=== PATIENT | male | born 1960 ===

== ENCOUNTER 2018-04-29 14:59 | Inpatient (IN) | payer MEDICAID ==
[2018-04-29] MEDS ORDERED: Iodixanol 320 MG/ML 100 ML BOTTLE IV ONE (16:21)
[2018-04-29 16:31] LABS: BASO # 0.1 K/uL (0.0-0.2); BASO % 0.9 % (0.0-2.0); EOS # 0.3 K/uL (0.0-0.7); EOS % 2.9 % (0.0-4.0); HEMOGLOBIN 14.1 g/dL (12.0-18.0); LYMPH # 1.3 K/uL (1.0-4.3); LYMPH % 14.1 % (20.0-40.0); MEAN CELL VOLUME 83.4 fL (80.0-94.0); MEAN CORPUSCULAR HEMOGLOBIN 27.6 pg (27.0-31.0); MEAN PLATELET VOLUME 6.8 fL (7.2-11.7); MONO # 0.9 K/uL (0.0-0.8); MONO % 9.4 % (0.0-10.0); NEUT # 6.8 K/uL (1.8-7.0); NEUT % 72.7 % (50.0-75.0); RBC 5.1 Mil/uL (4.40-5.90); RED CELL DISTRIBUTION WIDTH 14.5 % (11.5-14.5); WHITE BLOOD COUNT 9.3 K/uL (4.8-10.8)
--- NOTE | 2018-04-29 16:35 | C.PDOC ---
History Of Present Illness Patient presents to ED c/o SOB for approx 1 week, worse with exertion. He admits to occasional productive cough. Patient denies chest pain, fever, palpitations, abdominal pain, nausea/vomiting. Patient has PMHx of cigarette smoking, denies PMhx of asthma/COPD. Patient had outpatient CXR done, radiology report states he has large left sided pleural effusion, recommends CT chest. Time Seen by Provider: 04/29/18 16:00 Chief Complaint (Nursing): Shortness Of Breath History Per: Patient History/Exam Limitations: no limitations Onset/Duration Of Symptoms: Days (approx 1 week) Current Respiratory Medications: See Home Med List Severity: Moderate Past Medical History Reviewed: Historical Data, Nursing Documentation, Vital Signs Vital Signs: Last Vital Signs Temp 98.0 F 05/02/18 23:54 Pulse 88 05/02/18 23:54 Resp 20 05/02/18 23:54 BP 116/69 05/02/18 23:54 Pulse Ox 99 05/02/18 23:54 - Medical History PMH: No Chronic Diseases Family History: States: No Known Family Hx - Social History Hx Alcohol Use: Yes Hx Substance Use: No - Immunization History Hx Influenza Vaccination: No Hx Pneumococcal Vaccination: No Review Of Systems Constitutional: Negative for: Fever, Chills Cardiovascular: Negative for: Chest Pain, Palpitations Respiratory: Positive for: Cough, Shortness of Breath, SOB with Excertion. Negative for: Wheezing Gastrointestinal: Negative for: Nausea, Vomiting, Abdominal Pain Skin: Negative for: Rash Physical Exam - Physical Exam Appears: Well, Non-toxic, No Acute Distress, Other (speaking in full sentences) Skin: Normal Color, Warm, Dry Oral Mucosa: Moist Cardiovascular: Rhythm Regular (tachycardic ) Respiratory: Decreased Breath Sounds (left side - no breath sounds), No Accessory Muscle Use, No Rales, No Rhonchi, No Wheezing Gastrointestinal/Abdominal: Normal Exam, Bowel Sounds, Soft Extremity: Normal ROM, No Pedal Edema, No Calf Tenderness, Other (mild left axillary lymphadenopathy) Pulses: Left Dorsalis Pedis: Normal, Right Dorsalis Pedis: Normal Neurological/Psych: Oriented x3 ED Course And Treatment - Laboratory Results Result Diagrams: 05/02/18 08:53 05/02/18 08:53 ECG: Interpreted By Me, Viewed By Me (sinus tachycrdia 110 bpm, left axis deviation, no acute ST/T wave changes) ECG Interpretation: Abnormal O2 Sat by Pulse Oximetry: 95 (RA) Pulse Ox Interpretation: Normal - CT Scan/US CTA CHEST Other Rad Studies (CT/US): Read By Radiologist, Radiology Report Reviewed CT/US Interpretation: Accession No. : [id number]. Patient Name / ID : ANTHONY ALEJANDRO / [id number]. Exam Date : 04/29/2018 17:36:05 ( Approved ). Study Comment : Sex / Age : M / [id number]. Creator : roger toledo. Dictator : Dairy Equipment Installer : District Or District Office Director : Breezy Guerrero MD. Approver2 : Report Date : 04/2018 17:45:11. My Comment : . This report is currently processing and HAS NOT BEEN OFFICIALLY SIGNED BY THE PHYSICIAN - ESTIMATED TIME OF APPROVAL IS 04/29/2018 18:04. PROCEDURE: CT Chest with contrast (Pulmonary Angiogram). HISTORY: LEFT SIDED EFFUSION, R/O MASS, PE. COMPARISON: None available. TECHNIQUE: Axial computed tomography images were obtained of the chest in the pulmonary arterial phase of enhancement. Coronal and sagittal reformatted images were created and reviewed. Intravenous contrast dose: 100 cc Visipaque 320. Radiation dose: Total exam DLP = 330.39 mGy-cm. This CT exam was performed using one or more of the following dose reduction techniques: Automated exposure control, adjustment of the mA and/or kV according to patient size, and/or use of iterative reconstruction technique. FINDINGS: PULMONARY ARTERIES: The visualized pulmonary trunk, right main, right lobar segmental and proximal subsegmental branches of the pulmonary arteries are patent with no evidence of right-sided pulmonary embolus. The left main pulmonary artery as well as the lobar and proximal segmental branches appear patent so far as can be determined that given the significant compressive type atelectasis due to a very large left-sided effusion. Pulmonary trunk measures approximately 2.5 cm though this may be slightly compressed. AORTA: No acute findings. Ascending thoracic aorta measures approximately 3.75 cm and descending thoracic aorta measures approximately 2.4 cm. LUNGS: There is a massive left-sided effusion with compressive type atelectasis and mediastinal shift from left to right. In addition, there appears to be a compression of the left upper and lower lobe bronchi. . Significant centrilobular and panlobular emphysematous changes upper lobe predominance right lung. Mild atelectasis and or scarring change right middle lobe and to a lesser degree right lung base. . There is a small approximately 3.9 mm nodule right lateral upper lobe near the pleural surface. PLEURAL SPACES: As above. No evidence of pneumothorax the. HEART: Heart size normal. No significant pericardial effusion. LYMPH NODES: No lymphadenopathy. BONES, CHEST WALL: Minor multilevel degenerative spondylosis of the thoracic spine. OTHER FINDINGS: Unremarkable. IMPRESSION: Massive of left-sided effusion with compressive atelectasis of the left upper and lower lobes and mediastinal shift. No evidence of central pulmonary embolus so far as can be determined as detailed above. Significant emphysematous changes right lung upper lobe predominance. Small 3.9 mm nodule right lateral upper lobe near the pleural surface of the lateral convexity. Mild atelectasis and or scarring changes in the right lung base and lingular region Progress Note: Blood work, EKG, CTA chest ordered and reviewed. Patient given O2 by NC. 6:25pm Spoke with Dr. Sandoval (pulm consult), he will see patient tonight for pulm, for thoracentesis tonight or in AM. - Physician Consult Information Physician Contacted: Chinedu Joseph Outcome Of Conversation: Discussed patient with PMD, would like Dr. Elise for pulmonary. Dr. Elise spoken with, is away and being covered by Dr. Sandoval. Pending call back. Disposition - Disposition Disposition: HOSPITALIZED Disposition Time: 18:24 Condition: STABLE - Clinical Impression Clinical Impression: Pleural effusion, Dyspnea Decision To Admit - Pt Status Changed To: Hospital Disposition Of: Inpatient - Admit Certification Admit to Inpatient:: After my assessment, the patient will require hospitalization for at least two midnights. This is because of the severity of symptoms shown, intensity of services needed, and/or the medical risk in this patient being treated as an outpatient. - InPatient: Physician Admission Certification: I certify that this patient requires 2 or more midnights of care for the following reason:: see notes - . Bed Request Type: Telemetry Admitting Physician: Chinedu Joseph Patient Diagnosis: Pleural effusion, Dyspnea
[2018-04-29 16:41] LABS: INR 1.2; PROTHROMBIN TIME 12.6 SECONDS (9.7-12.2)
[2018-04-29 16:47] LABS: ALT/SGPT 35 U/L (21-72); AST/SGOT 33 U/L (17-59); BLOOD UREA NITROGEN 9 mg/dL (9-20); CALCIUM 9.1 mg/dl (8.6-10.4); GFR AFRICAN-AMERICAN > 60; GFR NON-AFRICAN AMERICAN > 60
[2018-04-29 16:59] LABS: CK-MB 0.99 ng/mL (0.0-3.38)
--- NOTE | 2018-04-29 18:00 | CT ---
PROCEDURE: CT Chest with contrast (Pulmonary Angiogram) HISTORY: LEFT SIDED EFFUSION, R/O MASS, PE COMPARISON: None available. TECHNIQUE: Axial computed tomography images were obtained of the chest in the pulmonary arterial phase of enhancement. Coronal and sagittal reformatted images were created and reviewed. Intravenous contrast dose: 100 cc Visipaque 320 Radiation dose: Total exam DLP = 330.39 mGy-cm. This CT exam was performed using one or more of the following dose reduction techniques: Automated exposure control, adjustment of the mA and/or kV according to patient size, and/or use of iterative reconstruction technique. FINDINGS: PULMONARY ARTERIES: The visualized pulmonary trunk, right main, right lobar segmental and proximal subsegmental branches of the pulmonary arteries are patent with no evidence of right-sided pulmonary embolus. The left main pulmonary artery as well as the lobar and proximal segmental branches appear patent so far as can be determined that given the significant compressive type atelectasis due to a very large left-sided effusion. Pulmonary trunk measures approximately 2.5 cm though this may be slightly compressed. AORTA: No acute findings. Ascending thoracic aorta measures approximately 3.75 cm and descending thoracic aorta measures approximately 2.4 cm. LUNGS: There is a massive left-sided effusion with compressive type atelectasis and mediastinal shift from left to right. In addition, there appears to be a compression of the left upper and lower lobe bronchi. . Significant centrilobular and panlobular emphysematous changes upper lobe predominance right lung. Mild atelectasis and or scarring change right middle lobe and to a lesser degree right lung base. . There is a small approximately 3.9 mm nodule right lateral upper lobe near the pleural surface. PLEURAL SPACES: As above. No evidence of pneumothorax the. HEART: Heart size normal. No significant pericardial effusion. LYMPH NODES: No lymphadenopathy. BONES, CHEST WALL: Minor multilevel degenerative spondylosis of the thoracic spine. OTHER FINDINGS: Unremarkable. IMPRESSION: Massive of left-sided effusion with compressive atelectasis of the left upper and lower lobes and mediastinal shift. No evidence of central pulmonary embolus so far as can be determined as detailed above. Significant emphysematous changes right lung upper lobe predominance Small 3.9 mm nodule right lateral upper lobe near the pleural surface of the lateral convexity. Mild atelectasis and or scarring changes in the right lung base and lingular region
--- NOTE | 2018-04-29 20:56 | CP.PCM.CON ---
History of Present Illness - History of Present Illness History of Present Illness: Pulmonary Evaluation, Covering Dr. Elise Chief Complaint: Shortness of Breath The Patient was seen and examined at the bedside, Medical records reviewed and management issues were discussed and formulated with the house staff. Events reviewed Mr Moscoso is 58 Years old heavy smoker Male with no significant Past Medical History Who Patient presents to ED c/o SOB for 1 week, worse with exertion, he was in his usual state of health till last Tuesday, started to have worsening SOB especially over last couple of days associated with occasional productive cough. Patient denies chest pain, fever, palpitations, abdominal pain, nausea/ vomiting. Weight fluctuate but Pt also admits 6LB weigh loss recently Patient was seen by his PMD, found to be tachycardia and tachypnea, underwent EKG and had outpatient CXR done, radiology report states he has large left sided pleural effusion, recommends CT chest. He presented to the Emergency department this evening, underwent Chest CTA that was negative for central Pulmonary embolis. Pt saturating 93-95% on 3L nasal cannula PSH: Long standing smoking history for about 40 years, about 1PPD, recently cut down to 1/2 PPD Family History: States: No Known Family Hx Past Patient History - Past Social History Smoking Status: Light Smoker < 10 Cigarettes Daily - HEMATOLOGICAL/ONCOLOGICAL Hx Blood Disorders: Yes Hx Hepatitis A: Yes - PSYCHIATRIC Hx Substance Use: No Meds Allergies/Adverse Reactions: Allergies Allergy/AdvReac Type Severity Reaction Status Date / Time No Known Allergies Allergy Verified 04/29/18 15:17 Physical Exam - Constitutional Appears: Well, No Acute Distress (mild distress, Tachypnea when he walked to the bathroom) - Head Exam Head Exam: ATRAUMATIC, NORMAL INSPECTION, NORMOCEPHALIC - Eye Exam Eye Exam: EOMI, Normal appearance. absent: Conjunctival injection Pupil Exam: NORMAL ACCOMODATION, PERRL - ENT Exam ENT Exam: Mucous Membranes Moist, Normal Exam - Neck Exam Neck exam: Positive for: Full Rom, Normal Inspection. Negative for: Lymphadenopathy, Meningismus, Tenderness, Thyromegaly - Respiratory Exam Respiratory Exam: Decreased Breath Sounds, Prolonged Expiratory Phase, Rhonchi, Respiratory Distress (mild distress, Tachypnea when he walked to the bathroom). absent: Accessory Muscle Use, Chest Wall Tenderness, Clear to Auscultation Bilateral, Rales, Wheezes - Cardiovascular Exam Cardiovascular Exam: Tachycardia, REGULAR RHYTHM, RRR, +S1, +S2. absent: Bradycardia, Clicks, Diastolic murmur, Gallop, Irregular Rhythm, JVD - GI/Abdominal Exam GI & Abdominal Exam: Normal Bowel Sounds. absent: Distended, Firm, Guarding - Extremities Exam Extremities exam: Positive for: full ROM, normal capillary refill, normal inspection, pedal pulses present. Negative for: calf tenderness, joint swelling , pedal edema, tenderness - Back Exam Back exam: absent: CVA tenderness (L), CVA tenderness (R) - Neurological Exam Neurological exam: Alert, CN II-XII Intact, Motor Sensory Deficit, Normal Gait, Oriented x3, Reflexes Normal Results - Vital Signs Recent Vital Signs: Last Vital Signs Temp 98 F 04/29/18 15:10 Pulse 99 H 04/29/18 20:20 Resp 22 04/29/18 20:20 BP 161/110 H 04/29/18 20:20 Pulse Ox 95 04/29/18 20:20 - Labs Result Diagrams: 04/29/18 16:28 04/29/18 16:28 Labs: Laboratory Results - last 24 hr 04/29/18 04/29/18 04/29/18 16:28 16:28 16:28 WBC 9.3 RBC 5.10 Hgb 14.1 Hct 42.5 MCV 83.4 MCH 27.6 MCHC 33.0 RDW 14.5 Plt Count 446 H MPV 6.8 L Neut % (Auto) 72.7 Lymph % (Auto) 14.1 L Wilkes % (Auto) 9.4 Eos % (Auto) 2.9 Baso % (Auto) 0.9 Neut # (Auto) 6.8 Lymph # (Auto) 1.3 Wilkes # (Auto) 0.9 H Eos # (Auto) 0.3 Baso # (Auto) 0.1 PT 12.6 H INR 1.2 APTT 44 H Sodium 140 Potassium 4.0 Chloride 101 Carbon Dioxide 26 Anion Gap 17 BUN 9 Creatinine 1.1 Est GFR ( Amer) > 60 Est GFR (Non-Af Amer) > 60 POC Glucose (mg/dL) Random Glucose 186 H Calcium 9.1 Total Bilirubin 0.5 AST 33 ALT 35 Alkaline Phosphatase 124 Total Creatine Kinase 78 CK-MB (Mass) 0.99 Troponin I < 0.0120 Total Protein 7.8 Albumin 4.0 Globulin 3.8 Albumin/Globulin Ratio 1.0 04/29/18 16:47 WBC RBC Hgb Hct MCV MCH MCHC RDW Plt Count MPV Neut % (Auto) Lymph % (Auto) Wilkes % (Auto) Eos % (Auto) Baso % (Auto) Neut # (Auto) Lymph # (Auto) Wilkes # (Auto) Eos # (Auto) Baso # (Auto) PT INR APTT Sodium Potassium Chloride Carbon Dioxide Anion Gap BUN Creatinine Est GFR ( Amer) Est GFR (Non-Af Amer) POC Glucose (mg/dL) 184 H Random Glucose Calcium Total Bilirubin AST ALT Alkaline Phosphatase Total Creatine Kinase CK-MB (Mass) Troponin I Total Protein Albumin Globulin Albumin/Globulin Ratio Assessment & Plan (1) Pleural effusion on left Status: Acute (2) Emphysema of lung Status: Acute (3) Tobacco abuse Status: Acute - Assessment and Plan (Free Text) Assessment: Acute respiratory distress due to large left sided pleural effusion and COPD Weight fluctuate but Pt also admits 6LB weigh loss recently Long standing smoking history for about 40 years, about 1PPD, recently cut down to 1/2 PPD EKG and had outpatient CXR done, showing large left sided pleural effusion He presented to the Emergency department this evening, underwent Chest CTA that was negative for central Pulmonary embolism. Patient likelyhave diagnosis of COPD, that should eventually be confirmed by PFT 's when patient is more stable on an outpatient basis. No clinical evidence of pneumonia or PE (no Antibiotics at this time) Started ALBUTEROL/Atrovent Inhaler q4h PRN (inhaler technique Education performed) Nisotine patch Will arrange for performing diagnostic/therapeutic thoracentesis ECHO to evaluate LV function and R/O Pulmonary hypertension ABG reviewed 7.49/34/55/27/93% Patient plaed on BIPAP 12//40% RR16
[2018-04-29 23:36] LABS: ABG ALLEN TEST POS; ARTERIAL BLOOD GAS O2 SAT 93.1 % (95-98); ARTERIAL BLOOD GAS PCO2 34 mm/Hg (35-45); ARTERIAL BLOOD GAS PH 7.49 (7.35-7.45); ARTERIAL BLOOD GAS PO2 55 mm/Hg (80-100); ARTERIAL BLOOD GAS TCO2 26.9 mmol/L (22-28)
[2018-04-30] MEDS: Albuterol-Ipratrop 3 mg / 0.5 (3 ml) UD INH SCH ×7 (00:25→23:51)
--- NOTE | 2018-04-30 12:23 | CP.PCM.PN ---
Subjective - Date & Time of Evaluation Date of Evaluation: 04/30/18 Time of Evaluation: 11:00 - Subjective Subjective: The patient seen and examined Dyspnea while sitting and on minimal exertion CAT scan of the chest noted Large pleural effusion with mediastinal shift After obtaining consent thoracentesis procedure done in the intercostal space posterior axillary line Aseptic conditions/local anesthesia, 2.2 L of blood-tinged fluid removed Patient tolerated the procedure well Fluid analysis Followup chest x-ray Malignancy rosangela Objective - Vital Signs/Intake and Output Vital Signs (last 24 hours): Temp Pulse Resp BP Pulse Ox 98.0 F 88 20 143/95 H 95 04/30/18 08:47 04/30/18 08:47 04/30/18 08:47 04/30/18 08:47 04/30/18 08:47 - Medications Medications: Current Medications Albuterol/Ipratropium (Duoneb 3 Mg/0.5 Mg (3 Ml) Ud) 3 ml INH RQ4 [facility] Last Admin: 04/30/18 11:11 Dose: 3 ml Heparin Sodium (Porcine) (Heparin) 5,000 units SC Q8 [facility] Last Admin: 04/30/18 06:53 Dose: 5,000 units Nicotine (Nicoderm Cq) 1 patch TD DAILY [facility] Last Admin: 04/30/18 09:18 Dose: 1 patch Pneumococcal Polyvalent Vaccine (Pneumovax 23 Vaccine) 0.5 ml IM .ONCE ONE Stop: 05/02/18 14:01 - Labs Labs: 04/29/18 16:28 04/29/18 16:28 PT 12.6 SECONDS (9.7-12.2) H 04/29/18 16:28 INR 1.2 04/29/18 16:28 APTT 44 SECONDS (21-34) H 04/29/18 16:28
--- NOTE | 2018-04-30 13:05 | RAD ---
HISTORY: post thoracentesis COMPARISON: Comparison made with CTA chest dated 04/29/2018 FINDINGS: LUNGS: Status post left-sided thoracentesis with decreased size left-sided effusion. There is persistent opacification of the left mid-lower lung zone. No obvious pneumothorax. PLEURA: As above. CARDIOVASCULAR: Slight improvement previously noted [id number] mediastinal shift OSSEOUS STRUCTURES: No significant abnormalities. VISUALIZED UPPER ABDOMEN: Normal. OTHER FINDINGS: None. IMPRESSION: Status post left-sided thoracentesis with decreased size left-sided effusion. There is persistent opacification of the left mid-lower lung zone. No obvious pneumothorax. Slight improvement previously noted [id number] mediastinal shift
[2018-05-01] MEDS: Albuterol-Ipratrop 3 mg / 0.5 (3 ml) UD INH SCH ×5 (03:17→20:26)
--- NOTE | 2018-05-01 09:00 | CP.PCM.HP ---
History of Present Illness - History of Present Illness History of Present Illness: CC: short of breath 58 y/o with no past medical problem. Patient seen in 04/24 for shortness of breath and dry cough. He had CXR and EKG. CXR showed effusion and advise to go to ER. In ER was admitted. Present on Admission - Present on Admission Any Indicators Present on Admission: Yes History of DVT/PE: No History of Uncontrolled Diabetes: No Urinary Catheter: No Decubitus Ulcer Present: No Review of Systems - Review of Systems Systems not reviewed;Unavailable: Acuity of Condition, Respiratory Distress - Constitutional Constitutional: Lethargy, Malaise. absent: Headache, Increased Appetite, Sleep Apnea - EENT Eyes: absent: Loss of Peripheral Vision, Requires Corrective Lenses, Sees Flashes, Spots in Vision Ears: absent: Ear Discharge, Ear Pain, Tinnitus, Disequilibrium, Dizziness Nose/Mouth/Throat: absent: Nasal Congestion, Bleeding Gums, Dysphagia, Facial Pain - Cardiovascular Cardiovascular: Dyspnea. absent: Chest Pain, Diaphoresis, Dyspnea on Exertion, Edema, Leg Edema, Leg Ulcers, Palpitations - Respiratory Respiratory: Cough. absent: Pain on Inspiration, Chest Congestion, Excessive Mucous Production - Gastrointestinal Gastrointestinal: absent: Abdominal Pain, Fecal Incontinence, Loose Stools, Vomiting - Genitourinary Genitourinary: absent: Difficulty Urinating, Dysuria, Pyuria - Musculoskeletal Musculoskeletal: absent: Back Pain, Loss of Height, Muscle Weakness, Numbness - Integumentary Integumentary: absent: Alopecia, Hirsutism, Rash - Neurological Neurological: absent: Dizziness, Numbness, Focal Weakness, Loss of Vision - Hematologic/Lymphatic Hematologic: absent: Easy Bleeding, Easy Bruising, Lymphadenopathy Past Patient History - Infectious Disease Hx of Infectious Diseases: None - Past Social History Smoking Status: Heavy Smoker > 10 Cigarettes Daily - HEMATOLOGICAL/ONCOLOGICAL Hx Blood Disorders: Yes Hx Hepatitis A: Yes - MUSCULOSKELETAL/RHEUMATOLOGICAL Hx Falls: No - PSYCHIATRIC Hx Substance Use: No Meds Allergies/Adverse Reactions: Allergies Allergy/AdvReac Type Severity Reaction Status Date / Time No Known Allergies Allergy Verified 04/29/18 15:17 Physical Exam - Constitutional Appears: No Acute Distress - Eye Exam Eye Exam: Normal appearance - ENT Exam ENT Exam: Mucous Membranes Moist - Neck Exam Neck exam: Positive for: Full Rom. Negative for: Tenderness, Thyromegaly - Respiratory Exam Respiratory Exam: Decreased Breath Sounds. absent: Rales, Rhonchi, Wheezes - Cardiovascular Exam Cardiovascular Exam: REGULAR RHYTHM, +S1, +S2. absent: Gallop, JVD, Systolic Murmur - GI/Abdominal Exam GI & Abdominal Exam: absent: Mass, Rebound, Tenderness - Extremities Exam Extremities exam: Positive for: calf tenderness, full ROM, normal capillary refill. Negative for: joint swelling Results - Vital Signs Recent Vital Signs: Last Vital Signs Temp 99.0 F 05/01/18 07:54 Pulse 90 05/01/18 07:54 Resp 20 05/01/18 07:54 BP 162/91 H 05/01/18 07:54 Pulse Ox 97 05/01/18 07:54 - Labs Result Diagrams: 04/29/18 16:28 04/29/18 16:28 Assessment & Plan - Assessment and Plan (Free Text) Assessment: Massive left pleural effusion w/ shift s/p Thoracentesis COPD, HTN ?? For on going work up Doneb started; addd Shalom Discuss w/ - likely malignancy
[2018-05-01] MEDS: diltiaZEM 240 mg/24 Hours CD Cap PO SCH (09:54)
--- NOTE | 2018-05-01 17:13 | CP.PCM.PN ---
Subjective - Date & Time of Evaluation Date of Evaluation: 05/01/18 Time of Evaluation: 10:35 - Subjective Subjective: : Shortness of breath HPI: Patient examined this morning at the bedside. Patient is not in acute distress. Patient reports improved breathing after thoracentesis. Patient is afebrile. Patient is more responsive. Pending thoracentesis fluid results. Repeat chest x-ray showed s/p left sided thoracentesis with decreased size left - sided effusion. Slight improvement from previously noted left- to- right mediastinal shift. ROS: Constitutional: Patient denies fever and chills. Cardiovascular: Patient denies chest pain, palpitations. Respiratory: Patient denies shortness of breath or cough. Gastrointestinal: Patient denies nausea, vomiting, diarrhea. Physical Exam HEENT: Atraumatic, normocephalic, mucuous membranes moist Repiratory: Clear to auscultation bilaterally. No wheezing or rhonchi. No use of accessory muscles. Cardiovascular: +S1/ S2, regular rate and rhythm GI: Normal bowel sounds in all 4 quadrants, no tenderness, no distention Extremities: No LE edema Neurological: Alert, awake, oriented X3 Assessment: 58 year old male patient with no past medical history; patient's CXR consistent with pleural effusion. 1. Pleural effusion - Pleural fluid analysis - Malignancy workup Objective - Vital Signs/Intake and Output Vital Signs (last 24 hours): Temp Pulse Resp BP Pulse Ox 98.2 F 90 20 147/89 96 05/01/18 15:30 05/01/18 16:28 05/01/18 15:30 05/01/18 15:30 05/01/18 15:30 - Medications Medications: Current Medications Albuterol/Ipratropium (Duoneb 3 Mg/0.5 Mg (3 Ml) Ud) 3 ml INH RQ4 [facility] Last Admin: 05/01/18 16:55 Dose: 3 ml Diltiazem HCl (Cardizem Cd) 240 mg PO DAILY [facility] Last Admin: 05/01/18 09:54 Dose: 240 mg Heparin Sodium (Porcine) (Heparin) 5,000 units SC Q8 [facility] Last Admin: 05/01/18 13:55 Dose: 5,000 units Nicotine (Nicoderm Cq) 1 patch TD DAILY [facility] Last Admin: 05/01/18 09:54 Dose: 1 patch Pneumococcal Polyvalent Vaccine (Pneumovax 23 Vaccine) 0.5 ml IM .ONCE ONE Stop: 05/02/18 14:01 Fluticasone/Salmeterol (Advair Diskus 250/50) 1 puff INH RQ12 [facility] - Labs Labs: 04/29/18 16:28 04/29/18 16:28 PT 12.6 SECONDS (9.7-12.2) H 04/29/18 16:28 INR 1.2 04/29/18 16:28 APTT 44 SECONDS (21-34) H 04/29/18 16:28
[2018-05-01] MEDS: Fluticasone-Salmeterol 250-50mcg Diskus INH SCH (20:29)
--- NOTE | 2018-05-01 21:18 | CARD ---
APPROVED REPORT EXAM: Two-dimensional and M-mode echocardiogram with Doppler and color Doppler. INDICATION Dyspnea LV Function:Systolic Pulmonary Hypertention 2D DIMENSIONS IVSd1.5 (0.7-1.1cm)Aortic Root (2D)3.8 (2.0-3.7cm) LVDd4.5 (3.9-5.9cm)PWd1.3 (0.7-1.1cm) LVDs3.3 (2.5-4.0cm)FS (%) 26.5 % LVEF (%)65.0 (>50%) M-Mode DIMENSIONS Left Atrium (MM)2.76 (2.5-4.0cm)IVSd1.42 (0.7-1.1cm) Aortic Root3.81 (2.2-3.7cm)LVDd4.79 (4.0-5.6cm) Aortic Cusp Exc.2.24 (1.5-2.0cm)PWd1.39 (0.7-1.1cm) FS (%) 41 %LVDs2.81 (2.0-3.8cm) LVEF (%)72 (>50%) Mitral Valve MV E Anedjadz53.1cm/sMV A Cuyhremp18.8cm/sE/A ratio0.8 TDI E/Lateral E'0.0E/Medial E'0.0 LEFT VENTRICLE The left ventricle is normal size. There is mild concentric left ventricular hypertrophy. The left ventricular function is normal. The left ventricular ejection fraction is within the normal range. about 70% No regional wall motion abnormalities noted. Transmitral Doppler flow pattern is Grade I-abnormal relaxation pattern. No left ventricle thrombus noted on this study. There is no ventricular septal defect visualized. There is no left ventricular aneurysm. There is no mass noted in the left ventricle. RIGHT VENTRICLE The right ventricle is normal size. There is normal right ventricular wall thickness. The right ventricular systolic function is normal. ATRIA The left atrium size is normal. The right atrium size is normal. The interatrial septum is intact with no evidence for an atrial septal defect. AORTIC VALVE The aortic valve is normal in structure and function. No aortic regurgitation is present. There is no aortic valvular stenosis. There is no aortic valvular vegetation. MITRAL VALVE The mitral valve is normal in structure and function. There is no evidence of mitral valve prolapse. There is no mitral valve stenosis. There is no mitral valve regurgitation noted. TRICUSPID VALVE The tricuspid valve is normal in structure and function. There is no tricuspid valve regurgitation noted. There is no tricuspid valve prolapse or vegetation. There is no tricuspid valve stenosis. PULMONIC VALVE The pulmonary valve is normal in structure and function. There is no pulmonic valvular regurgitation. There is no pulmonic valvular stenosis. GREAT VESSELS The aortic root is normal in size. The ascending aorta is normal in size. The pulmonary artery is normal. The IVC is normal in size and collapses >50% with inspiration. PERICARDIAL EFFUSION The pericardium appears normal. Large pleural effusions are noted with fibrinous material therein. <Conclusion> Nomral left ventricular systolic function and doppler Large pleural effusions are noted with fibrinous material therein.
[2018-05-02] MEDS: Albuterol-Ipratrop 3 mg / 0.5 (3 ml) UD INH SCH ×6 (00:44→20:18)
[2018-05-02] MEDS: Fluticasone-Salmeterol 250-50mcg Diskus INH SCH ×2 (08:04→20:18)
--- NOTE | 2018-05-02 08:12 | CP.PCM.PN ---
Subjective - Date & Time of Evaluation Date of Evaluation: 05/02/18 Time of Evaluation: 07:55 - Subjective Subjective: Pt feels well; no more SOB, min dry cough, no CP, N/V, no diarrhea. No fever, no urinary complain Objective - Vital Signs/Intake and Output Vital Signs (last 24 hours): Temp Pulse Resp BP Pulse Ox 97.5 F L 92 H 20 133/79 95 05/02/18 00:00 05/02/18 07:30 05/02/18 00:00 05/02/18 00:00 05/02/18 00:00 - Medications Medications: Current Medications Albuterol/Ipratropium (Duoneb 3 Mg/0.5 Mg (3 Ml) Ud) 3 ml INH RQ4 [facility] Last Admin: 05/02/18 08:04 Dose: 3 ml Diltiazem HCl (Cardizem Cd) 240 mg PO DAILY [facility] Last Admin: 05/01/18 09:54 Dose: 240 mg Heparin Sodium (Porcine) (Heparin) 5,000 units SC Q8 [facility] Last Admin: 05/02/18 05:43 Dose: 5,000 units Nicotine (Nicoderm Cq) 1 patch TD DAILY [facility] Last Admin: 05/01/18 09:54 Dose: 1 patch Pneumococcal Polyvalent Vaccine (Pneumovax 23 Vaccine) 0.5 ml IM .ONCE ONE Stop: 05/02/18 14:01 Fluticasone/Salmeterol (Advair Diskus 250/50) 1 puff INH RQ12 [facility] Last Admin: 05/02/18 08:04 Dose: 1 puff - Labs Labs: 04/29/18 16:28 04/29/18 16:28 PT 12.6 SECONDS (9.7-12.2) H 04/29/18 16:28 INR 1.2 04/29/18 16:28 APTT 44 SECONDS (21-34) H 04/29/18 16:28 - Constitutional Appears: No Acute Distress - Eye Exam Eye Exam: Normal appearance - ENT Exam ENT Exam: Mucous Membranes Moist - Neck Exam Neck Exam: Full ROM. absent: Lymphadenopathy, Normal Inspection - Respiratory Exam Respiratory Exam: Decreased Breath Sounds. absent: Rales, Rhonchi, Wheezes - Cardiovascular Exam Cardiovascular Exam: REGULAR RHYTHM, +S1. absent: Gallop - GI/Abdominal Exam GI & Abdominal Exam: Soft. absent: Tenderness - Extremities Exam Extremities Exam: Full ROM. absent: Calf Tenderness, Joint Swelling Assessment and Plan - Assessment and Plan (Free Text) Assessment: HTN; COPD; Massive pleural effusion likely malignant Cont meds/ supportive care Pt and made aware c/o on going work up but likely cancer
[2018-05-02 09:06] LABS: BASO # 0.1 K/uL (0.0-0.2); BASO % 0.7 % (0.0-2.0); EOS # 0.4 K/uL (0.0-0.7); EOS % 4.8 % (0.0-4.0); HEMOGLOBIN 14.1 g/dL (12.0-18.0); LYMPH # 1.3 K/uL (1.0-4.3); LYMPH % 15.6 % (20.0-40.0); MEAN CELL VOLUME 83.5 fL (80.0-94.0); MEAN CORPUSCULAR HEMOGLOBIN 28.1 pg (27.0-31.0); MEAN CORPUSCULAR HGB CONC 33.7 g/dL (33.0-37.0); MEAN PLATELET VOLUME 6.9 fL (7.2-11.7); MONO # 0.7 K/uL (0.0-0.8); MONO % 8.6 % (0.0-10.0); NEUT # 6.1 K/uL (1.8-7.0); NEUT % 70.3 % (50.0-75.0); RBC 5.01 Mil/uL (4.40-5.90); RED CELL DISTRIBUTION WIDTH 13.9 % (11.5-14.5); WHITE BLOOD COUNT 8.6 K/uL (4.8-10.8)
[2018-05-02 09:29] LABS: ALB/GLOB RATIO 1.1 (1.0-2.1); ALBUMIN 3.8 g/dL (3.5-5.0); ALT/SGPT 30 U/L (21-72); AST/SGOT 23 U/L (17-59); BLOOD UREA NITROGEN 10 mg/dL (9-20); CALCIUM 8.9 mg/dl (8.6-10.4); GFR AFRICAN-AMERICAN > 60; GFR NON-AFRICAN AMERICAN > 60
[2018-05-02] MEDS: diltiaZEM 240 mg/24 Hours CD Cap PO SCH (09:47)
[2018-05-02] MEDS ORDERED: Pneumococcal 23-Valent Vaccine IM ONE (14:00)
--- NOTE | 2018-05-02 16:32 | CP.PCM.PN ---
Subjective - Date & Time of Evaluation Date of Evaluation: 05/02/18 Time of Evaluation: 11:00 - Subjective Subjective: Shortness of breath HPI: Patient seen and examined this morning at the bedside. Patient is not in acute distress. Patient denies any shortness of breath. Patient is afebrile. Pathology results of pleural fluid was negative for malignant cells. Patient will have chest tube placed for drainage. ROS: Constitutional: Patient denies fever and chills. Cardiovascular: Patient denies chest pain, palpitations. Respiratory: Patient denies shortness of breath or cough. Gastrointestinal: Patient denies nausea, vomiting, diarrhea. Physical Exam HEENT: Atraumatic, normocephalic, mucuous membranes moist Repiratory: Clear to auscultation bilaterally. No wheezing or rhonchi. No use of accessory muscles. Cardiovascular: +S1/ S2, regular rate and rhythm GI: Normal bowel sounds in all 4 quadrants, no tenderness, no distention Extremities: No LE edema Neurological: Alert, awake, oriented X3 Assessment: 58 year old male patient with no past medical history; patient's CXR consistent with pleural effusion. 1. Pleural effusion - Pathology results negative for malignant cells - Chest tube placement for drainage Objective - Vital Signs/Intake and Output Vital Signs (last 24 hours): Temp Pulse Resp BP Pulse Ox 97.6 F 98 H 20 148/91 H 95 05/02/18 15:06 05/02/18 15:06 05/02/18 15:06 05/02/18 15:06 05/02/18 15:06 - Medications Medications: Current Medications Albuterol/Ipratropium (Duoneb 3 Mg/0.5 Mg (3 Ml) Ud) 3 ml INH RQ4 [facility] Last Admin: 05/02/18 16:25 Dose: 3 ml Diltiazem HCl (Cardizem Cd) 240 mg PO DAILY [facility] Last Admin: 05/02/18 09:47 Dose: 240 mg Heparin Sodium (Porcine) (Heparin) 5,000 units SC Q8 [facility] Last Admin: 05/02/18 13:39 Dose: 5,000 units Nicotine (Nicoderm Cq) 1 patch TD DAILY [facility] Last Admin: 05/02/18 09:48 Dose: 1 patch Fluticasone/Salmeterol (Advair Diskus 250/50) 1 puff INH RQ12 [facility] Last Admin: 05/02/18 08:04 Dose: 1 puff - Labs Labs: 05/02/18 08:53 05/02/18 08:53 PT 12.6 SECONDS (9.7-12.2) H 04/29/18 16:28 INR 1.2 04/29/18 16:28 APTT 44 SECONDS (21-34) H 04/29/18 16:28
[2018-05-02] MEDS ORDERED: Lidocaine 1% Inj (20ml) INJ ONE (17:45)
--- NOTE | 2018-05-02 18:43 | PCM.PROC ---
Procedures Attestation:: I certify that I have explained the specified Operation(s) or Procedure(s), risks, benefits and reasonable alternatives to the Patient and/or other person responsible. The opportunity was given to ask questions and all questions answered - Chest Tube Chest Tube Location: Posterior Chest Left, Lateral Chest Left Chest Tube Procedure: Povidone-Iodine 1% Tube Sutured to Skin: No Sterile Dressing Applied: Yes Anesthesia: Lidocaine 1% Volume Anesthetic (mls): 6 Incision Made With: #10 blade Post Procedure: sterile dressing applied [place]: No Tube Drainage: fluid Amount of Initial Drainage: 1,000 Post Procedure CXR?: Yes Patient Tolerated Procedure: Yes
--- NOTE | 2018-05-02 18:55 | RAD ---
Date of service: 05/02/2018 PROCEDURE: CHEST RADIOGRAPH, 1 VIEW HISTORY: s/p chest tube insertion COMPARISON: Chest radiograph dated 04/30/2018. FINDINGS: LUNGS: Left basilar atelectasis. PLEURA: Reduction in still moderate to large left pleural effusion post pigtail chest tube insertion. CARDIOVASCULAR: Cardiomediastinal silhouette be adequately evaluated secondary to adjacent obscuring lung pathology. OSSEOUS STRUCTURES: Unchanged. VISUALIZED UPPER ABDOMEN: Normal. OTHER FINDINGS: New left basilar pigtail chest tube. IMPRESSION: New left basilar pigtail chest tube with reduction in still moderate to large left pleural effusion.
[2018-05-02] MEDS ORDERED: Oxycodone/Acetaminophen 5/325 mg Tab PO PRN (22:12)
[2018-05-03] MEDS: Albuterol-Ipratrop 3 mg / 0.5 (3 ml) UD INH SCH ×6 (00:19→20:01)
[2018-05-03] MEDS: Fluticasone-Salmeterol 250-50mcg Diskus INH SCH ×2 (07:35→20:02)
--- NOTE | 2018-05-03 08:22 | CP.PCM.PN ---
Subjective - Date & Time of Evaluation Date of Evaluation: 05/03/18 Time of Evaluation: 07:50 - Subjective Subjective: Pt no complain; no CP, no irritability despite off tobacco use; A little craving after eating. No CP, no SOB, no edema, (+) dry cough Objective - Vital Signs/Intake and Output Vital Signs (last 24 hours): Temp Pulse Resp BP Pulse Ox 97.6 F 75 20 138/78 95 05/03/18 07:00 05/03/18 07:00 05/03/18 07:00 05/03/18 07:00 05/03/18 07:30 Intake and Output: 05/03/18 05/03/18 06:59 18:59 Output Total 210 Balance -210 - Medications Medications: Current Medications Albuterol/Ipratropium (Duoneb 3 Mg/0.5 Mg (3 Ml) Ud) 3 ml INH RQ4 [facility] Last Admin: 05/03/18 07:35 Dose: 3 ml Diltiazem HCl (Cardizem Cd) 240 mg PO DAILY [facility] Last Admin: 05/02/18 09:47 Dose: 240 mg Nicotine (Nicoderm Cq) 1 patch TD DAILY [facility] Last Admin: 05/02/18 09:48 Dose: 1 patch Oxycodone/Acetaminophen (Percocet 5/325 Mg Tab) 1 tab PO Q6H PRN PRN Reason: Pain, moderate (4-7) Stop: 05/05/18 22:13 Last Admin: 05/03/18 06:03 Dose: 1 tab Fluticasone/Salmeterol (Advair Diskus 250/50) 1 puff INH RQ12 [facility] Last Admin: 05/03/18 07:35 Dose: 1 puff - Labs Labs: 05/02/18 08:53 05/02/18 08:53 PT 12.6 SECONDS (9.7-12.2) H 04/29/18 16:28 INR 1.2 04/29/18 16:28 APTT 44 SECONDS (21-34) H 04/29/18 16:28 - Constitutional Appears: No Acute Distress - Eye Exam Eye Exam: Normal appearance. absent: Periorbital tenderness - ENT Exam ENT Exam: Mucous Membranes Moist - Neck Exam Neck Exam: Full ROM. absent: Lymphadenopathy, Thyromegaly - Respiratory Exam Respiratory Exam: absent: Decreased Breath Sounds, Rales, Rhonchi, Wheezes - Cardiovascular Exam Cardiovascular Exam: Gallop, REGULAR RHYTHM, +S1, +S2. absent: JVD - GI/Abdominal Exam GI & Abdominal Exam: Soft. absent: Tenderness - Extremities Exam Extremities Exam: Calf Tenderness, Full ROM. absent: Joint Swelling Assessment and Plan - Assessment and Plan (Free Text) Assessment: Malignant effusion s/p chest tube insertion COPD For chest CT cont supportive care
[2018-05-03] MEDS ORDERED: Iodixanol 320 MG/ML 100 ML BOTTLE IV ONE (09:17)
[2018-05-03] MEDS: diltiaZEM 240 mg/24 Hours CD Cap PO SCH (10:19)
--- NOTE | 2018-05-03 12:01 | CT ---
Date of service: 05/03/2018 PROCEDURE: CT Chest with contrast HISTORY: abn CXR COMPARISON: CT angiography of the pulmonary arteries performed 04/29/2018. TECHNIQUE: Contiguous axial images were obtained through the chest with intravenous contrast enhancement. Sagittal and coronal reconstructions were performed. IV contrast: 100 mL Visipaque 320 Radiation dose (DLP): 353.3 mGy-cm. This CT exam was performed using one or more of the following dose reduction techniques: Automated exposure control, adjustment of the mA and/or kV according to patient size, and/or use of iterative reconstruction technique. FINDINGS: LUNGS: Near complete re-expansion of left lung with minimal lingular and left lower lobe subsegmental atelectasis. Trace dependent right lower lobe atelectasis. Visualized airway clear. MEDIASTINUM: Unremarkable thoracic aorta. No aneurysm or dissection. Normal sized heart. Main pulmonary artery unremarkable. No vascular congestion. No lymphadenopathy. PLEURA: Marked reduction of massive left pleural effusion post pigtail chest tube insertion with small residual pleural effusion, possibly with small loculated component anteroinferiorly. Small amount of hyperdensity seen along the left posterior lateral pleura redemonstrated which may be related to blood products and/or soft tissue. No pneumothorax. BONES: No fracture. No destructive lesion. UPPER ABDOMEN: Partially imaged heterogeneously enhancing right upper pole mass. OTHER FINDINGS: None. IMPRESSION: Partially imaged heterogeneously enhancing right upper pole renal mass. Marked reduction of massive left pleural effusion post pigtail chest tube insertion with small residual pleural effusion, possibly with small anteroinferior loculated component. Small amount of hyperdensity layering along the left posterior lateral pleura redemonstrated which may be related to blood products and/or soft tissue.
--- NOTE | 2018-05-03 17:23 | CP.PCM.PN ---
Subjective - Date & Time of Evaluation Date of Evaluation: 05/03/18 Time of Evaluation: 10:00 - Subjective Subjective: Patient seen and examined this morning at the bedside. Patient is not in acute distress. Patient denies any shortness of breath. Patient is afebrile. Patient has pig tail chest tube for drainage. Patient had CT scan which showed marked reduction of massive left pleural effusion post pigtail tube insertion. Partially imaged heterogeneously enhancing right upper pole renal mass. ROS: Constitutional: Patient denies fever and chills. Cardiovascular: Patient denies chest pain, palpitations. Respiratory: Patient denies shortness of breath or cough. Gastrointestinal: Patient denies nausea, vomiting, diarrhea. Physical Exam HEENT: Atraumatic, normocephalic, mucuous membranes moist Repiratory: Clear to auscultation bilaterally. No wheezing or rhonchi. No use of accessory muscles. Cardiovascular: +S1/ S2, regular rate and rhythm GI: Normal bowel sounds in all 4 quadrants, no tenderness, no distention Extremities: No LE edema Neurological: Alert, awake, oriented X3 Assessment: 58 year old male patient with no past medical history; patient's CXR consistent with pleural effusion. 1. Pleural effusion - Patient has pig tail chest tube for drainage of pleural effusion. - Tube will be removed tomorrow before discharge. - Patient to get biopsy of renal mass as outpatient Objective - Vital Signs/Intake and Output Vital Signs (last 24 hours): Temp Pulse Resp BP Pulse Ox 97.7 F 85 20 133/75 96 05/03/18 16:05 05/03/18 16:05 05/03/18 16:05 05/03/18 16:05 05/03/18 16:05 Intake and Output: 05/03/18 05/03/18 06:59 18:59 Output Total 210 Balance -210 - Medications Medications: Current Medications Albuterol/Ipratropium (Duoneb 3 Mg/0.5 Mg (3 Ml) Ud) 3 ml INH RQ4 [facility] Last Admin: 05/03/18 16:13 Dose: 3 ml Diltiazem HCl (Cardizem Cd) 240 mg PO DAILY [facility] Last Admin: 05/03/18 10:19 Dose: 240 mg Nicotine (Nicoderm Cq) 1 patch TD DAILY [facility] Last Admin: 05/03/18 10:19 Dose: 1 patch Oxycodone/Acetaminophen (Percocet 5/325 Mg Tab) 1 tab PO Q6H PRN PRN Reason: Pain, moderate (4-7) Stop: 05/05/18 22:13 Last Admin: 05/03/18 06:03 Dose: 1 tab Fluticasone/Salmeterol (Advair Diskus 250/50) 1 puff INH RQ12 [facility] Last Admin: 05/03/18 07:35 Dose: 1 puff - Labs Labs: 05/02/18 08:53 05/02/18 08:53 PT 12.6 SECONDS (9.7-12.2) H 04/29/18 16:28 INR 1.2 04/29/18 16:28 APTT 44 SECONDS (21-34) H 04/29/18 16:28
[2018-05-04] MEDS: Albuterol-Ipratrop 3 mg / 0.5 (3 ml) UD INH SCH ×5 (00:08→15:31)
--- NOTE | 2018-05-04 06:53 | CP.PCM.PN ---
Subjective - Date & Time of Evaluation Date of Evaluation: 05/04/18 Time of Evaluation: 06:50 - Subjective Subjective: S: Feels better. Eager to go home. Objective - Vital Signs/Intake and Output Vital Signs (last 24 hours): Temp Pulse Resp BP Pulse Ox 98.5 F 79 20 142/79 96 05/04/18 00:00 05/04/18 00:00 05/04/18 00:00 05/04/18 00:00 05/04/18 00:00 Intake and Output: 05/03/18 05/04/18 18:59 06:59 Intake Total 200 Output Total 550 Balance -350 - Medications Medications: Current Medications Albuterol/Ipratropium (Duoneb 3 Mg/0.5 Mg (3 Ml) Ud) 3 ml INH RQ4 [facility] Last Admin: 05/04/18 03:20 Dose: Not Given Diltiazem HCl (Cardizem Cd) 240 mg PO DAILY [facility] Last Admin: 05/03/18 10:19 Dose: 240 mg Nicotine (Nicoderm Cq) 1 patch TD DAILY [facility] Last Admin: 05/03/18 10:19 Dose: 1 patch Oxycodone/Acetaminophen (Percocet 5/325 Mg Tab) 1 tab PO Q6H PRN PRN Reason: Pain, moderate (4-7) Stop: 05/05/18 22:13 Last Admin: 05/03/18 06:03 Dose: 1 tab Fluticasone/Salmeterol (Advair Diskus 250/50) 1 puff INH RQ12 [facility] Last Admin: 05/03/18 20:02 Dose: 1 puff - Labs Labs: 05/02/18 08:53 05/02/18 08:53 PT 12.6 SECONDS (9.7-12.2) H 04/29/18 16:28 INR 1.2 04/29/18 16:28 APTT 44 SECONDS (21-34) H 04/29/18 16:28 - Constitutional Appears: Non-toxic - Head Exam Head Exam: NORMAL INSPECTION - Eye Exam Eye Exam: Normal appearance - Neck Exam Neck Exam: Normal Inspection - Respiratory Exam Respiratory Exam: Decreased Breath Sounds (Chest tube noted) - Cardiovascular Exam Cardiovascular Exam: REGULAR RHYTHM - GI/Abdominal Exam GI & Abdominal Exam: Soft - Rectal Exam Rectal Exam: Deferred - Extremities Exam Extremities Exam: Normal Inspection - Neurological Exam Neurological Exam: Alert Assessment and Plan (1) Pleural effusion Status: Acute (2) Renal mass Status: Acute - Assessment and Plan (Free Text) Assessment: A/P: Continue medications. For Renal biopsy outpatient
[2018-05-04] MEDS: Fluticasone-Salmeterol 250-50mcg Diskus INH SCH (08:12)
[2018-05-04] MEDS: diltiaZEM 240 mg/24 Hours CD Cap PO SCH (09:08)
--- NOTE | 2018-05-04 12:20 | RAD ---
Date of service: 05/04/2018 HISTORY: r/o pleural effusion COMPARISON: CT chest dated 05/03/2018. FINDINGS: LUNGS: Left basilar atelectasis. PLEURA: Small left pleural effusion. No pneumothorax apparent. CARDIOVASCULAR: Cardiomediastinal silhouette within normal limits. OSSEOUS STRUCTURES: Unchanged. VISUALIZED UPPER ABDOMEN: Normal. OTHER FINDINGS: Removal of left basilar pigtail chest tube. IMPRESSION: Removal of left basilar pigtail chest tube. Small left pleural effusion.
--- NOTE | 2018-05-04 17:35 | CP.PCM.PN ---
Subjective - Date & Time of Evaluation Date of Evaluation: 05/04/18 Time of Evaluation: 09:30 - Subjective Subjective: Patient seen and examined this morning at the bedside. Patient is not in acute distress. Patient denies any shortness of breath. Patient is afebrile. Patient pig tail chest tube removed. Patient had CXR done after procedure with findings of small left pleural effusion. Patient will be discharged home today. ROS: Constitutional: Patient denies fever and chills. Cardiovascular: Patient denies chest pain, palpitations. Respiratory: Patient denies shortness of breath or cough. Gastrointestinal: Patient denies nausea, vomiting, diarrhea. Physical Exam HEENT: Atraumatic, normocephalic, mucuous membranes moist Repiratory: Clear to auscultation bilaterally. No wheezing or rhonchi. No use of accessory muscles. Cardiovascular: +S1/ S2, regular rate and rhythm GI: Normal bowel sounds in all 4 quadrants, no tenderness, no distention Extremities: No LE edema Neurological: Alert, awake, oriented X3 Assessment: 58 year old male patient with no past medical history; patient's CXR consistent small L pleural effusion. 1. Pleural effusion - Patient had pig tail chest tube removed today - S/P Chest Xray - Patient to get biopsy of renal mass as outpatient - Patient discharged today Objective - Vital Signs/Intake and Output Vital Signs (last 24 hours): Temp Pulse Resp BP Pulse Ox 97.8 F 75 18 134/75 97 05/04/18 15:25 05/04/18 16:00 05/04/18 15:25 05/04/18 15:25 05/04/18 15:25 Intake and Output: 05/04/18 05/04/18 06:59 18:59 Intake Total 200 Output Total 550 Balance -350 - Medications Medications: Current Medications Albuterol/Ipratropium (Duoneb 3 Mg/0.5 Mg (3 Ml) Ud) 3 ml INH RQ4 [facility] Last Admin: 05/04/18 15:31 Dose: Not Given Diltiazem HCl (Cardizem Cd) 240 mg PO DAILY [facility] Last Admin: 05/04/18 09:08 Dose: 240 mg Nicotine (Nicoderm Cq) 1 patch TD DAILY [facility] Last Admin: 05/04/18 09:08 Dose: 1 patch Oxycodone/Acetaminophen (Percocet 5/325 Mg Tab) 1 tab PO Q6H PRN PRN Reason: Pain, moderate (4-7) Stop: 05/05/18 22:13 Last Admin: 05/03/18 06:03 Dose: 1 tab Fluticasone/Salmeterol (Advair Diskus 250/50) 1 puff INH RQ12 [facility] Last Admin: 05/04/18 08:12 Dose: 1 puff - Labs Labs: 05/02/18 08:53 05/02/18 08:53 PT 12.6 SECONDS (9.7-12.2) H 04/29/18 16:28 INR 1.2 04/29/18 16:28 APTT 44 SECONDS (21-34) H 04/29/18 16:28
[2018-05-04 23:41] VITALS: RESP 20
[2018-05-05] MEDS: Albuterol-Ipratrop 3 mg / 0.5 (3 ml) UD INH SCH ×3 (01:21→08:00)
[2018-05-05 07:50] VITALS: TEMP 97.6; O2SAT 96
[2018-05-05] MEDS: Fluticasone-Salmeterol 250-50mcg Diskus INH SCH (07:59)
--- NOTE | 2018-05-05 08:14 | CP.PCM.PN ---
Subjective - Date & Time of Evaluation Date of Evaluation: 05/05/18 Time of Evaluation: 08:01 - Subjective Subjective: Pt want to go home; Want to go home No CP, no SOB, no edema; no more cough since chest tube removed Objective - Vital Signs/Intake and Output Vital Signs (last 24 hours): Temp Pulse Resp BP Pulse Ox 97.6 F 85 20 126/80 96 05/05/18 07:00 05/05/18 07:00 05/05/18 07:00 05/05/18 07:00 05/05/18 07:00 - Medications Medications: Current Medications Albuterol/Ipratropium (Duoneb 3 Mg/0.5 Mg (3 Ml) Ud) 3 ml INH RQ4 [facility] Last Admin: 05/05/18 08:00 Dose: 3 ml Diltiazem HCl (Cardizem Cd) 240 mg PO DAILY [facility] Last Admin: 05/04/18 09:08 Dose: 240 mg Nicotine (Nicoderm Cq) 1 patch TD DAILY [facility] Last Admin: 05/04/18 09:08 Dose: 1 patch Oxycodone/Acetaminophen (Percocet 5/325 Mg Tab) 1 tab PO Q6H PRN PRN Reason: Pain, moderate (4-7) Stop: 05/05/18 22:13 Last Admin: 05/03/18 06:03 Dose: 1 tab Fluticasone/Salmeterol (Advair Diskus 250/50) 1 puff INH RQ12 [facility] Last Admin: 05/05/18 07:59 Dose: 1 puff - Labs Labs: 05/02/18 08:53 05/02/18 08:53 PT 12.6 SECONDS (9.7-12.2) H 04/29/18 16:28 INR 1.2 04/29/18 16:28 APTT 44 SECONDS (21-34) H 04/29/18 16:28 - Constitutional Appears: No Acute Distress - Eye Exam Eye Exam: Normal appearance - ENT Exam ENT Exam: Mucous Membranes Moist - Neck Exam Neck Exam: Full ROM. absent: Lymphadenopathy, Normal Inspection - Respiratory Exam Respiratory Exam: Clear to Ausculation Bilateral. absent: Rales, Rhonchi, Wheezes - Cardiovascular Exam Cardiovascular Exam: REGULAR RHYTHM, +S1, +S2. absent: Gallop - GI/Abdominal Exam GI & Abdominal Exam: Soft. absent: Tenderness - Extremities Exam Extremities Exam: Full ROM, Normal Capillary Refill. absent: Calf Tenderness, Joint Swelling Assessment and Plan - Assessment and Plan (Free Text) Assessment: Renal mass; massive effusion HTN; COPD Discharge on diltiazem Stress to get renal mass taken care off SUJATA - still want to go home.
[2018-05-05] MEDS ORDERED: Pneumococcal 23-Valent Vaccine IM ONE (09:33)
[2018-05-05] MEDS: diltiaZEM 240 mg/24 Hours CD Cap PO SCH (09:51)
[2018-05-05 13:57] VITALS: BP 132/82; PULSE 109
--- NOTE | 2018-05-07 09:37 | CARD ---
APPROVED REPORT Date of service: 04/29/2018 EKG Measurement Heart [id number] <Conclusion> Sinus tachycardia Otherwise normal ECG
--- NOTE | 2018-05-21 20:47 | CP.PCM.DIS ---
Provider - Provider Date of Admission: 04/29/18 18:24 CC: Short of breath 58 y/o male with no past medicalproblem. patient seen early April and has SOB. He had chest 'x-ray and EKG. Patient was found to have massive effusion w. shift. Patient advise to go to ER Attending physician: Carrillo Joseph MD Time Spent in preparation of Discharge (in minutes): 11 Hospital Course - Lab Results Lab Results: Most Recent Lab Values WBC 8.6 K/uL (4.8-10.8) 05/02/18 08:53 RBC 5.01 Mil/uL (4.40-5.90) 05/02/18 08:53 Hgb 14.1 g/dL (12.0-18.0) 05/02/18 08:53 Hct 41.9 % (35.0-51.0) 05/02/18 08:53 MCV 83.5 fL (80.0-94.0) 05/02/18 08:53 MCH 28.1 pg (27.0-31.0) 05/02/18 08:53 MCHC 33.7 g/dL (33.0-37.0) 05/02/18 08:53 RDW 13.9 % (11.5-14.5) 05/02/18 08:53 Plt Count 517 K/uL (130-400) H 05/02/18 08:53 MPV 6.9 fL (7.2-11.7) L 05/02/18 08:53 Neut % (Auto) 70.3 % (50.0-75.0) 05/02/18 08:53 Lymph % (Auto) 15.6 % (20.0-40.0) L 05/02/18 08:53 [place] % (Auto) 8.6 % (0.0-10.0) 05/02/18 08:53 Eos % (Auto) 4.8 % (0.0-4.0) H 05/02/18 08:53 Baso % (Auto) 0.7 % (0.0-2.0) 05/02/18 08:53 Neut # (Auto) 6.1 K/uL (1.8-7.0) 05/02/18 08:53 Lymph # (Auto) 1.3 K/uL (1.0-4.3) 05/02/18 08:53 [place] # (Auto) 0.7 K/uL (0.0-0.8) 05/02/18 08:53 Eos # (Auto) 0.4 K/uL (0.0-0.7) 05/02/18 08:53 Baso # (Auto) 0.1 K/uL (0.0-0.2) 05/02/18 08:53 PT 12.6 SECONDS (9.7-12.2) H 04/29/18 16:28 INR 1.2 04/29/18 16:28 APTT 44 SECONDS (21-34) H 04/29/18 16:28 Puncture Site Rr 04/29/18 23:30 pCO2 34 mm/Hg (35-45) L 04/29/18 23:30 pO2 55 mm/Hg (80-100) L 04/29/18 23:30 HCO3 27.0 mmol/L (21-28) 04/29/18 23:30 ABG pH 7.49 (7.35-7.45) H 04/29/18 23:30 ABG Total CO2 26.9 mmol/L (22-28) 04/29/18 23:30 ABG O2 Saturation 93.1 % (95-98) L 04/29/18 23:30 ABG Base Excess 2.9 mmol/L (-2.0-3.0) 04/29/18 23:30 Ben Test Pos 04/29/18 23:30 ABG Potassium 3.5 mmol/L (3.6-5.2) L 04/29/18 23:30 Sodium 137.0 mmol/l (132-148) 04/29/18 23:30 Chloride 105.0 mmol/L (98-107) 04/29/18 23:30 Glucose 115 mg/dl (75-110) H 04/29/18 23:30 Lactate 0.9 mmol/L (0.7-2.1) 04/29/18 23:30 Liter Flow 2.0 04/29/18 23:30 Sodium 143 mmol/L (132-148) 05/02/18 08:53 Potassium 4.4 mmol/L (3.6-5.2) 05/02/18 08:53 Chloride 101 mmol/L (98-107) 05/02/18 08:53 Carbon Dioxide 28 mmol/L (22-30) 05/02/18 08:53 Anion Gap 18 (10-20) 05/02/18 08:53 BUN 10 mg/dL (9-20) 05/02/18 08:53 Creatinine 1.2 mg/dL (0.8-1.5) 05/02/18 08:53 Est GFR ( Amer) > 60 05/02/18 08:53 Est GFR (Non-Af Amer) > 60 05/02/18 08:53 POC Glucose (mg/dL) 184 mg/dL (65-110) H 04/29/18 16:47 Random Glucose 135 mg/dL (75-110) H 05/02/18 08:53 Calcium 8.9 mg/dl (8.6-10.4) 05/02/18 08:53 Total Bilirubin 0.8 mg/dL (0.2-1.3) 05/02/18 08:53 AST 23 U/L (17-59) 05/02/18 08:53 ALT 30 U/L (21-72) 05/02/18 08:53 Alkaline Phosphatase 123 U/L (38-126) 05/02/18 08:53 Total Creatine Kinase 78 U/L (55-170) 04/29/18 16:28 CK-MB (Mass) 0.99 ng/mL (0.0-3.38) 04/29/18 16:28 Troponin I < 0.0120 ng/mL (0.00-0.120) 04/29/18 16:28 Total Protein 7.2 g/dL (6.3-8.3) 05/02/18 08:53 Albumin 3.8 g/dL (3.5-5.0) 05/02/18 08:53 Globulin 3.4 gm/dL (2.2-3.9) 05/02/18 08:53 Albumin/Globulin Ratio 1.1 (1.0-2.1) 05/02/18 08:53 Prostate Specific Ag 4.88 ng/mL (0.00-4.0) H 05/02/18 08:53 Arterial Blood Potassium 3.5 mmol/L (3.6-5.2) L 04/29/18 23:30 Pleural Total Protein TNP 04/30/18 12:40 Pleural LDH TNP 04/30/18 12:40 Pleural Glucose TNP 04/30/18 12:40 TB Test (QFT) Nil 0.05 IU/mL 05/02/18 08:30 TB Test Mitogen - Nil 2.95 IU/mL 05/02/18 08:30 TB Test TB - Nil 0.25 IU/mL 05/02/18 08:30 TB Test (QFT) Negative (Negative) 05/02/18 08:30 - Hospital Course Hospital Course: Pt admitted and refer to Pulmonary. Patient had pleural tap and chest tube placed. Patient repeat CT showed a renal mass on left side. Patient refer to Urology in [facility]PD. Discharge Exam - Head Exam Head Exam: NORMAL INSPECTION - Eye Exam Eye Exam: Normal appearance - ENT Exam ENT Exam: Mucous Membranes Moist - Neck Exam Neck exam: Full Rom - Respiratory Exam Respiratory Exam: Chest Wall Tenderness, Clear to PA & Lateral. absent: Rales, Rhonchi, Wheezes - GI/Abdominal Exam GI & Abdominal Exam: Soft. absent: Guarding, Tenderness - Extremities Exam Extremities exam: full ROM, normal capillary refill, pedal pulses present Discharge Plan - Follow Up Plan Condition: STABLE Disposition: HOME/ ROUTINE Instructions: Smoking: Not Just Harmful to Your Lungs and Heart, COPD Including Emphysema (DC), Pleural Effusion (DC), Diltiazem, Dyspnea (GEN) Additional Instructions: Follow up with Urology Dr Ron Hester. Follow up in Dr. Joseph' clinic on 05/10/18. Continue Diltiazem CD 240mg 1 tablet oral daily. Referrals: Tj Elise MD [Staff Provider] - Carrillo Joseph MD [Staff Provider] - Elmo Hester MD [Staff Provider] -
== END 2018-05-05 10:02 | disposition home or self-care (01) | DRG 187 ==
LOC: C.ER 14:59 → C.9E 18:24 → C.5S 21:20
PROVIDERS: ADMIT Internal Medicine; ATTEND Internal Medicine
PROC: 0W9B3ZX Drainage of Left Pleural Cavity, Percutaneous Approach, Diagnostic (ICD-10-PCS; principal; 2018-04-30)
PROC: 0W9B30Z Drainage of Left Pleural Cavity with Drainage Device, Percutaneous Approach (ICD-10-PCS; 2018-05-02)
DX: J90 Pleural effusion, not elsewhere classified (principal); J98.11 Atelectasis; J43.9 Emphysema, unspecified; F17.210 Nicotine dependence, cigarettes, uncomplicated; N28.89 Other specified disorders of kidney and ureter; I10 Essential (primary) hypertension

== ENCOUNTER 2018-05-24 08:53 | Day surgery (SDC) | payer OTHER, SELFPAY ==
[2018-05-24] MEDS ORDERED: Absorbable Gelatin Sponge Size 12-7 ONE (09:54)
[2018-05-24] MEDS ORDERED: Propofol 10 mg/ml Inj (20 ML) ONE (10:16)
[2018-05-24] MEDS ORDERED: Midazolam 2 MG/2 ML VIAL ONE (10:17)
--- NOTE | 2018-05-24 10:37 | CP.SDSHP ---
Same Day Surgery H & P - History Proposed Procedure: Image guided biopsy of right renal mass Pre-Op Diagnosis: right renal mass - Allergies Allergies: Allergies No Known Allergies Allergy (Verified 04/29/18 15:17) - Physical Exam Mental Status: Alert & Oriented x3 Neuro: WNL Heart: WNL Lungs: WNL - Impression Impression: Pt with large right renal mass. PLAN US guided biopsy. Informed consent obtained. Pt. Evaluated Today:Candidate for Anesthesia & Procedure: Yes (ASA 3 Malampati 3 ) - Date & Time Date: 05/24/18 Time: 10:20 Short Stay Discharge - Short Stay Discharge Admitting Diagnosis/Reason for Visit: MASS Disposition: HOME/ ROUTINE
--- NOTE | 2018-05-24 10:39 | PCM.SURG1 ---
Surgeon's Initial Post Op Note - Surgeon's Notes Surgeon: Macario Avila MD Engineer Assistant: NONE Type of Anesthesia: IV Sedation Pre-Operative Diagnosis: right renal mass Operative Findings: 10+ cm right renal mass Post-Operative Diagnosis: right renal mass Operation Performed: Ultrasound guided biopsy of right renal mass. Four 18 gauge core specimen removed. Biopsy tract embolized with gelfoam. Specimen/Specimens Removed: 18 g core x 4 Estimated Blood Loss: EBL {In ML}: 3 Blood Products Given: N/A Drains Used: No Drains Post-Op Condition: Good Date of Surgery/Procedure: 05/24/18 Time of Surgery/Procedure: 10:35
--- NOTE | 2018-05-24 14:03 | US ---
PROCEDURE: Date of procedure: 05/24/2018 Procedure: Ultrasound-guided biopsy of right renal mass Ultrasound guidance for biopsy, [id number] Medications: The patient was received IV sedation administered by anesthesiologist along with physiologic monitoring, 8cc 1 percent lidocaine. HISTORY: Right renal mass TECHNIQUE: Following informed consent and procedure time-out, the patient was placed prone and limited ultrasound of the patient's right kidney showed a large upper pole mass measuring over 10 centimeters. After the patient right back was prepped and draped in the usual sterile fashion, the skin was anesthetized with 1% lidocaine. An 17 g core needle was advanced under ultrasound guidance into the mass. Upon confirmation of needle position, Ultrasound-guided core biopsy was performed using a coaxial technique. Three 18-gauge core biopsy specimens were obtained and sent for routine pathology. The biopsy tract was embolized with Gelfoam. The post biopsy ultrasound showed no hematoma. IMPRESSION: Ultrasound-guided core biopsy of right renal mass. There were no immediate complications.
== END 2018-05-24 12:30 | disposition home or self-care (01) ==
LOC: C.SPRAD 08:53
PROVIDERS: ATTEND Radiology Vascular & Interventional Radiology
DX: N28.89 Other specified disorders of kidney and ureter (principal)
CPT/HCPCS: 49180; 88305; J2250; J3010

== ENCOUNTER 2018-06-01 11:54 | Emergency (ER) | payer SELFPAY ==
[2018-06-01 12:21] VITALS: BMI 20.9
[2018-06-01 12:23] VITALS: RESP 18
--- NOTE | 2018-06-01 13:20 | C.PDOC ---
History Of Present Illness 58 y/o male sent to ED by Dr. Hester for further evaluation of fever developed last night after having CT scan. Patient states he took Advil with relief, states he was admitted 04/29/18 for fluid in lung and discharged on 05/05/18. At ED patient is afebrile and denies chest pain, nausea, vomiting or any other complaints at this time. Time Seen by Provider: 06/01/18 12:41 Chief Complaint (Nursing): Fever History Per: Patient History/Exam Limitations: no limitations Onset/Duration Of Symptoms: Days Current Symptoms Are (Timing): Still Present Sick Contacts (Context): None Past Medical History Reviewed: Historical Data, Nursing Documentation, Vital Signs Vital Signs: Last Vital Signs Temp 98 F 06/01/18 16:49 Pulse 86 06/01/18 16:49 Resp 18 06/01/18 16:49 BP 136/72 06/01/18 16:49 Pulse Ox 95 06/02/18 18:24 - Medical History PMH: HTN, Chronic Kidney Disease Surgical History: No Surg Hx - [facility] Procedures DRAINAGE OF L PLEURAL CAV WITH DRAIN DEV, PERC APPROACH (04/29/18) DRAINAGE OF LEFT PLEURAL CAVITY, PERC APPROACH, DIAGN (04/29/18) Family History: States: No Known Family Hx - Social History Hx Alcohol Use: Yes Hx Substance Use: No - Immunization History Hx Influenza Vaccination: No Hx Pneumococcal Vaccination: No Review Of Systems Constitutional: Positive for: Fever. Negative for: Chills Cardiovascular: Negative for: Chest Pain Respiratory: Negative for: Shortness of Breath Gastrointestinal: Negative for: Nausea, Vomiting, Abdominal Pain, Diarrhea Skin: Negative for: Rash Physical Exam - Physical Exam Appears: Non-toxic, No Acute Distress Skin: Warm, Dry, No Rash Head: Atraumatic, Normacephalic Eye(s): bilateral: Normal Inspection Ear(s): Bilateral: Normal Oral Mucosa: Moist Throat: No Erythema, No Exudate Neck: Normal ROM, Supple Chest: Symmetrical, No Tenderness Cardiovascular: Rhythm Regular, No Friction Rub, No Murmur Respiratory: Normal Breath Sounds, No Rales, No Rhonchi, No Wheezing Gastrointestinal/Abdominal: Soft, No Tenderness, No Guarding, No Rebound Back: Normal Inspection, No CVA Tenderness Extremity: Normal ROM, No Pedal Edema, Capillary Refill (<2 seconds) Neurological/Psych: Oriented x3, Normal Speech, Normal Cognition, Normal Motor, Normal Sensation Gait: Steady ED Course And Treatment - Laboratory Results Result Diagrams: 06/01/18 13:56 06/01/18 13:56 O2 Sat by Pulse Oximetry: 95 (RA) Pulse Ox Interpretation: Normal Progress Note: The patient currently states he feels well and has no complaints. Patient's vitals are WNL's. CXR shows possible early infiltrate and patient has 8 Bands on CBC. The patient does not want to stay in the hospital and is refusing admission for possible pneumonia. The patient requests to have Dr. Elise called and wants to be discharged with PO antibiotics. Medical Decision Making Medical Decision Making: The case was discussed with Dr. Elise who states that he will see the patient in the office within 1-2 days without fail. On re-exam, the patient reports improvement of symptoms. Lungs are CTA, heart is RRR, abdomen is soft, non- tender and tolerating Po well. Patient reports that she will return to the ED if there is any worsening at any time. Disposition - Disposition Referrals: Tj Elise MD [Staff Provider] - Disposition: HOME/ ROUTINE Disposition Time: 16:37 Condition: STABLE Additional Instructions: Follow up with Dr. Elise within 1-2 days without fail. Return if worsened. Prescriptions: Levofloxacin [Levaquin] 750 mg PO DAILY #7 tablet Instructions: Pneumonia, Adult (DC) Forms: [facility] (Turkmen) - Clinical Impression Clinical Impression: Pneumonia - PA / PARI MUTUEL TICKET CASHIER / Resident Statement MD/DO has reviewed & agrees with the documentation as recorded. - Scribe Statement The provider has reviewed the documentation as recorded by the Priyankibjorge Gold All medical record entries made by the Priyankibjorge were at my direction and personally dictated by me. I have reviewed the chart and agree that the record accurately reflects my personal performance of the history, physical exam, medical decision making, and the department course for this patient. I have also personally directed, reviewed, and agree with the discharge instructions and disposition.
[2018-06-01 14:08] LABS: BASO # 0.1 K/uL (0.0-0.2); BASO % 0.7 % (0.0-2.0); EOS # 0.5 K/uL (0.0-0.7); EOS % 6.2 % (0.0-4.0); LYMPH # 0.7 K/uL (1.0-4.3); LYMPH % 8.4 % (20.0-40.0); MEAN CELL VOLUME 80.5 fL (80.0-94.0); MEAN CORPUSCULAR HEMOGLOBIN 27.3 pg (27.0-31.0); MONO # 0.5 K/uL (0.0-0.8); MONO % 5.4 % (0.0-10.0); NEUT % 79.3 % (50.0-75.0); NRBC % 0.1 % (0.0-2.0); PLATELET COUNT 340 K/uL (130-400); RBC 5.11 Mil/uL (4.40-5.90); RED CELL DISTRIBUTION WIDTH 14.9 % (11.5-14.5); WHITE BLOOD COUNT 8.8 K/uL (4.8-10.8)
[2018-06-01 14:11] LABS: VENOUS BLOOD GAS BASE EXCESS 2.8 mmol/L (0.0-2.0); VENOUS BLOOD GAS PCO2 47 mmHg (40-60); VENOUS BLOOD GAS PO2 20 mm/Hg (30-55); VENOUS BLOOD PH 7.39 (7.32-7.43)
[2018-06-01 14:15] LABS: INR 1.2
[2018-06-01 14:17] LABS: SQUAMOUS EPITHIAL < 1 /hpf (0-5); URINE BILIRUBIN NEGATIVE (NEGATIVE); URINE BLOOD 1+ (NEGATIVE); URINE CLARITY Clear (Clear); URINE COLOR Yellow (YELLOW); URINE GLUCOSE (UA) NORMAL (Normal); URINE LEUKOCYTE ESTERASE TRACE Leu/uL (Negative); URINE PROTEIN NEGATIVE (NEGATIVE); URINE UROBILINOGEN NORMAL mg/dL (0.2-1.0)
[2018-06-01 14:19] LABS: ALB/GLOB RATIO 1.2 (1.0-2.1); ALBUMIN 4.4 g/dL (3.5-5.0); CALCIUM 9.9 mg/dl (8.6-10.4)
--- NOTE | 2018-06-01 14:29 | RAD ---
Date of service: 06/01/2018 HISTORY: Sepsis Patient COMPARISON: 05/03/[address] 05/04/2018 single-view chest 06/10/1970 single-view chest. FINDINGS: LUNGS: New left upper lobe infiltrate. This likely represents acute inflammatory/infectious process -pneumonia. PLEURA: Small residual left pleural effusion. CARDIOVASCULAR: Normal. OSSEOUS STRUCTURES: No significant abnormalities. VISUALIZED UPPER ABDOMEN: Normal. OTHER FINDINGS: None. IMPRESSION: New left upper lobe infiltrate. Stable pleural findings.
[2018-06-01 14:48] LABS: BANDS 8 % (0-2); EOSINOPHIL 6 % (0-4); LYMPHOCYTE 10 % (20-40); MONOCYTE 4 % (0-10); NEUTROPHIL 70 % (50-75); PLATELET ESTIMATE NORMAL (NORMAL); REACTIVE LYMPHOCYTES 2 % (0-0); TOTAL CELLS COUNTED 100
[2018-06-01 16:50] VITALS: BP 136/72; PULSE 86; TEMP 98
[2018-06-02 18:24] VITALS: O2SAT 95
--- NOTE | 2018-06-03 12:58 | CARD ---
APPROVED REPORT Date of service: 06/01/2018 EKG Measurement Heart [id number] <Conclusion> Normal sinus rhythm Left axis deviation Otherwise normal for age.
== END 2018-06-01 16:50 | disposition home or self-care (01) ==
LOC: C.ER 11:54
DX: J18.9 Pneumonia, unspecified organism (principal); I12.9 Hypertensive chronic kidney disease with stage 1 through stage 4 chronic kidney disease, or unspecified chronic kidney disease; N18.9 Chronic kidney disease, unspecified

== ENCOUNTER 2019-01-23 19:40 | Observation (INO) | payer OTHER, SELFPAY ==
[2019-01-23 19:40] VITALS: BMI 20.9
[2019-01-23 20:44] LABS: VENOUS BLOOD GAS PCO2 36 mmHg (40-60); VENOUS BLOOD GAS PO2 50 mm/Hg (30-55); VENOUS BLOOD PH 7.46 (7.32-7.43)
[2019-01-23 20:54] LABS: BASO # 0.1 K/uL (0.0-0.2); BASO % 0.8 % (0.0-2.0); EOS # 0.2 K/uL (0.0-0.7); EOS % 2.5 % (0.0-4.0); HEMOGLOBIN 13.1 g/dL (12.0-18.0); LYMPH # 1.2 K/uL (1.0-4.3); LYMPH % 16.9 % (20.0-40.0); MEAN CELL VOLUME 80.2 fL (80.0-94.0); MEAN CORPUSCULAR HEMOGLOBIN 26.8 pg (27.0-31.0); MEAN CORPUSCULAR HGB CONC 33.5 g/dL (33.0-37.0); MEAN PLATELET VOLUME 6.7 fL (7.2-11.7); MONO # 0.8 K/uL (0.0-0.8); MONO % 10.7 % (0.0-10.0); NEUT % 69.1 % (50.0-75.0); NRBC % 0.1 % (0.0-2.0); RBC 4.89 Mil/uL (4.40-5.90); RED CELL DISTRIBUTION WIDTH 14.5 % (11.5-14.5); WHITE BLOOD COUNT 7.2 K/uL (4.8-10.8)
[2019-01-23 21:05] LABS: INR 1.1; PROTHROMBIN TIME 12.4 SECONDS (9.7-12.2)
[2019-01-23 21:07] LABS: ALB/GLOB RATIO 1.3 (1.0-2.1); ALBUMIN 4.1 g/dL (3.5-5.0); ALT/SGPT 9 U/L (21-72); AST/SGOT 18 U/L (17-59); BLOOD UREA NITROGEN 14 mg/dL (9-20); CALCIUM 11.5 mg/dl (8.6-10.4); GFR NON-AFRICAN AMERICAN 48
[2019-01-23 21:16] LABS: B-TYPE NATRIURETIC PEPTIDE 1110 pg/mL (0-900); CK-MB 0.95 ng/mL (0.0-3.38)
--- NOTE | 2019-01-23 22:03 | C.PDOC ---
History Of Present Illness 59 year old male presents to ED c/o worsening SOB for approximately 3-4 weeks. Patient has had previous left sided effusion, and had a thoracocentesis done by his stove carriage operator Dr. Elise. He also reports some chills last week, but denies fever, headache, CP, palpitations, coughing, abdominal pain, nausea/vomiting, diarrhea, rashes. PMHx: HTN, renal mass with ? metastatic disease Time Seen by Provider: 01/23/19 20:12 Chief Complaint (Nursing): Shortness Of Breath History Per: Patient History/Exam Limitations: no limitations Onset/Duration Of Symptoms: Days Current Symptoms Are (Timing): Still Present Quality: Tightness Current Respiratory Medications: See Home Med List Associated Symptoms: Chills Reports Recently: Treated By A Physician (Dr. Elise) Recent travel outside of the [place]: No Additional History Per: Patient Past Medical History Reviewed: Historical Data, Nursing Documentation, Vital Signs Vital Signs: Last Vital Signs Temp 98.2 F 01/23/19 20:03 Pulse 99 H 01/23/19 20:03 Resp 24 01/23/19 20:38 BP 144/73 01/23/19 20:03 Pulse Ox 95 01/23/19 20:38 - Medical History PMH: HTN Surgical History: No Surg Hx - [facility] Procedures DRAINAGE OF L PLEURAL CAV WITH DRAIN DEV, PERC APPROACH (04/29/18) DRAINAGE OF LEFT PLEURAL CAVITY, PERC APPROACH, DIAGN (04/29/18) Family History: States: No Known Family Hx - Social History Hx Alcohol Use: No Hx Substance Use: No - Immunization History Hx Influenza Vaccination: No Hx Pneumococcal Vaccination: Yes Review Of Systems Constitutional: Positive for: Chills. Negative for: Fever Eyes: Negative for: Vision Change Cardiovascular: Negative for: Chest Pain, Palpitations Respiratory: Positive for: Shortness of Breath. Negative for: Cough Gastrointestinal: Negative for: Nausea, Vomiting, Abdominal Pain Skin: Negative for: Rash Neurological: Negative for: Weakness, Numbness, Headache, Dizziness Physical Exam - Physical Exam Appears: Well, Non-toxic, Chronically Ill, Other (thin/frail appearing) Skin: Normal Color, Warm, Dry, No Rash Head: Normacephalic Eye(s): bilateral: Normal Inspection Oral Mucosa: Moist Neck: Supple Chest: Symmetrical Cardiovascular: Rhythm Regular Respiratory: Decreased Breath Sounds (left side), No Accessory Muscle Use, Rales (left side ), No Rhonchi, No Wheezing Gastrointestinal/Abdominal: Normal Exam, Bowel Sounds, Soft, No Tenderness, No Guarding, No Rebound Extremity: Normal ROM, No Tenderness, No Pedal Edema, No Calf Tenderness Pulses: Left Dorsalis Pedis: Normal, Right Dorsalis Pedis: Normal Neurological/Psych: Oriented x3 Gait: Steady ED Course And Treatment - Laboratory Results Result Diagrams: 01/25/19 08:07 01/25/19 08:07 Lab Results: pO2 50 mm/Hg (30-55) 01/23/19 20:35 VBG pH 7.46 (7.32-7.43) H 01/23/19 20:35 VBG pCO2 36 mmHg (40-60) L 01/23/19 20:35 VBG HCO3 26.2 mmol/L 01/23/19 20:35 VBG Total CO2 26.7 mmol/L (22-28) 01/23/19 20:35 VBG O2 Sat (Calc) 91.4 % (40-65) H 01/23/19 20:35 VBG Base Excess 2.0 mmol/L (0.0-2.0) 01/23/19 20:35 VBG Potassium 3.5 mmol/L (3.6-5.2) L 01/23/19 20:35 Sodium 132.0 mmol/l (132-148) 01/23/19 20:35 Chloride 100.0 mmol/L (98-107) 01/23/19 20:35 Glucose 150 mg/dl (75-110) H 01/23/19 20:35 Lactate 1.2 mmol/L (0.7-2.1) 01/23/19 20:35 FiO2 21.0 % 01/23/19 20:35 PT 12.4 SECONDS (9.7-12.2) H 01/23/19 20:40 INR 1.1 01/23/19 20:40 APTT 39 SECONDS (21-34) H 01/23/19 20:40 Troponin I < 0.0120 ng/mL (0.00-0.120) 01/23/19 20:40 NT-Pro-B Natriuret Pep 1110 pg/mL (0-900) H 01/23/19 20:40 Total Bilirubin 0.6 mg/dL (0.2-1.3) 01/23/19 20:40 AST 18 U/L (17-59) 01/23/19 20:40 ALT 9 U/L (21-72) L D 01/23/19 20:40 Alkaline Phosphatase 106 U/L (38-126) 01/23/19 20:40 Total Protein 7.2 g/dL (6.3-8.3) 01/23/19 20:40 Albumin 4.1 g/dL (3.5-5.0) 01/23/19 20:40 Globulin 3.1 gm/dL (2.2-3.9) 01/23/19 20:40 Albumin/Globulin Ratio 1.3 (1.0-2.1) 01/23/19 20:40 ECG: Interpreted By Me, Viewed By Me (NSR 87 bpm, left axis deviation, no acute ST/T wave changes) ECG Interpretation: No Acute Changes O2 Sat by Pulse Oximetry: 95 (ON RA) Pulse Ox Interpretation: Normal Progress Note: Blood work, EKG, CXR ordered and reviewed. 10:20pm- Discussed patient with Dr. Elise, patient has had prior pleural effusions on left side, s/p thoracetesis by him. Patient also likely has renal mass, pleural effusion is potential metastatic disease. Plans to do thoracentesis tomorrow. - Physician Consult Information Physician Contacted: Chaitanya Simental Outcome Of Conversation: Discussed patient with hospitalist, agrees with obs tele for left sided pleural effusion, dsypnea, kidney mass. Disposition - Disposition Disposition: HOSPITALIZED Disposition Time: 22:40 Condition: STABLE - Clinical Impression Clinical Impression: Recurrent left pleural effusion, Left kidney mass, Dyspnea - Scribe Statement The provider has reviewed the documentation as recorded by the Scribe Maicol Reese All medical record entries made by the Scribe were at my direction and personally dictated by me. I have reviewed the chart and agree that the record accurately reflects my personal performance of the history, physical exam, medical decision making, and the department course for this patient. I have also personally directed, reviewed, and agree with the discharge instructions and disposition. Decision To Admit - Pt Status Changed To: Hospital Disposition Of: Observation - . Bed Request Type: Telemetry Admitting Physician: Chaitanya Simental Patient Diagnosis: Recurrent left pleural effusion, Dyspnea, Left kidney mass
[2019-01-23 22:22] VITALS: RESP 20
--- NOTE | 2019-01-23 23:03 | CP.PCM.HP ---
<Grace Capps P - Last Filed: 01/24/19 06:58> History of Present Illness - History of Present Illness History of Present Illness: Medicine H&P CC: L lower rib pain HPI: 59 year old male with PMHx of benign R kidney mass and previous pleural effusion presents to ED complaining of posterior left lower rib pain that began 3-4 weeks ago. Pain is 7/10, aching and feels like when he had the pleural effusion in 2018. Pain awakens patient from sleep. Patient also complans of shortness of breath on exertion. Symptoms worsen with walking. Treatment with aleve, advil and salonpas patches provided slight improvement. Patient endorses night sweats for the past week and 5 lb weight loss in the last month due to early satiety. Reports one episode of bloody urine 1.5 weeks ago which has resolve- states he has been meaning to see Dr. Little. Patient Denies fever, chills, chest pain, palpitations, cough, abdominal pain, hematochezia, nausea, vomiting, diarrhea, dysuria, urinary frequency. PMHx: enign R kidney mass and previous pleural effusion PSHx: R renal biopsy, thoracenesis 2018 Meds: none Allergies: NKDA FamHx: father- aneurysm SocHx: smoker- smokes 1ppd, denies alcohol and illicit drugs Pulm: Dr. Elise, Urology: Dr. Little Review of Systems: -Gen: No fever, No chills, +night sweats, No headache, No lethargy, No weakness, +weight loss -HEENT: No dizziness, No change in vision, No change in hearing, No sore throat, No dysphagia, No nasal congestion, No mucous. -Cardio: No chest pain, No palpitations, No lower extremity edema, No orthopnea. -Resp: No cough, +dyspnea, No hemoptysis, No wheezing, No pain on inspiration. -GI: No abdominal pain, No nausea/vomiting, No diarrhea/constipation, No hematochezia, No hematemesis. -: No dysuria, No urinary freq, No incontinence, +hematuria, No change in urinary stream. -MSK: + Rib pain R lower ribs No muscle weakness, No radiating pain. -Skin: No itching, No rash, No lesions. -Neuro: No confusion, No numbness, No tingling, No focal weakness, No radicular pain, No syncope. -Psych: No anxiety, No depression, No H/I, No S/I, No hallucinations. Present on Admission - Present on Admission Any Indicators Present on Admission: No Past Patient History - Infectious Disease Hx of Infectious Diseases: None - Past Medical History & Family History Past Medical History?: Yes - Past Social History Smoking Status: Heavy Smoker > 10 Cigarettes Daily - CARDIAC Hx Hypertension: Yes - PULMONARY Hx Respiratory Disorders: Yes Other/Comment: HX:LEFT CHEST TUBE PLACED UNDER LOCAL ANESTHESIA( 05/02/18)/REMOVED (05/04/18) - NEUROLOGICAL Hx Neurological Disorder: No - HEENT Hx HEENT Problems: No - RENAL Hx Chronic Kidney Disease: No - ENDOCRINE/METABOLIC Hx Endocrine Disorders: No - HEMATOLOGICAL/ONCOLOGICAL Hx Blood Disorders: Yes Hx Hepatitis A: Yes - INTEGUMENTARY Hx Dermatological Problems: No - MUSCULOSKELETAL/RHEUMATOLOGICAL Hx Musculoskeletal Disorders: No - GASTROINTESTINAL Hx Gastrointestinal Disorders: No - GENITOURINARY/GYNECOLOGICAL Hx Genitourinary Disorders: No - PSYCHIATRIC Hx Substance Use: No - SURGICAL HISTORY Hx Surgeries: Yes Other/Comment: CHEST TUBE PLACEMENT - ANESTHESIA Hx Anesthesia: No Meds Allergies/Adverse Reactions: Allergies Allergy/AdvReac Type Severity Reaction Status Date / Time No Known Allergies Allergy Verified 06/01/18 12:17 Physical Exam - Constitutional Appears: No Acute Distress, Other (thin) - Head Exam Head Exam: ATRAUMATIC, NORMOCEPHALIC - Eye Exam Eye Exam: EOMI, Normal appearance, PERRL - ENT Exam ENT Exam: Mucous Membranes Moist - Neck Exam Neck exam: Positive for: Full Rom, Normal Inspection - Respiratory Exam Respiratory Exam: Rales (L lower lobe), NORMAL BREATHING PATTERN. absent: Clear to Auscultation Bilateral, Rhonchi, Wheezes - Cardiovascular Exam Cardiovascular Exam: REGULAR RHYTHM, +S1, +S2 - GI/Abdominal Exam GI & Abdominal Exam: Soft. absent: Distended, Guarding, Rebound, Tenderness - Extremities Exam Extremities exam: Positive for: full ROM, normal capillary refill, normal inspection, pedal pulses present. Negative for: pedal edema, tenderness - Back Exam Back exam: absent: CVA tenderness (L), CVA tenderness (R) - Neurological Exam Neurological exam: Alert, CN II-XII Intact, Oriented x3 - Psychiatric Exam Psychiatric exam: Normal Affect, Normal Mood - Skin Skin Exam: Dry, Normal Color, Warm Results - Vital Signs Recent Vital Signs: Last Vital Signs Temp 98.2 F 01/23/19 20:03 Pulse 72 01/23/19 22:01 Resp 20 01/23/19 22:01 BP 123/64 01/23/19 22:01 Pulse Ox 95 01/23/19 22:35 - Labs Result Diagrams: 01/23/19 20:40 01/23/19 20:40 Labs: Laboratory Results - last 24 hr 01/23/19 01/23/19 01/23/19 20:35 20:40 20:40 WBC 7.2 RBC 4.89 Hgb 13.1 Hct 39.2 MCV 80.2 MCH 26.8 L MCHC 33.5 RDW 14.5 Plt Count 391 MPV 6.7 L Neut % (Auto) 69.1 Lymph % (Auto) 16.9 L Burnett % (Auto) 10.7 H Eos % (Auto) 2.5 Baso % (Auto) 0.8 Neut # (Auto) 5.0 Lymph # (Auto) 1.2 Burnett # (Auto) 0.8 Eos # (Auto) 0.2 Baso # (Auto) 0.1 PT 12.4 H INR 1.1 APTT 39 H pO2 50 VBG pH 7.46 H VBG pCO2 36 L VBG HCO3 26.2 VBG Total CO2 26.7 VBG O2 Sat (Calc) 91.4 H VBG Base Excess 2.0 VBG Potassium 3.5 L Sodium 132.0 Chloride 100.0 Glucose 150 H Lactate 1.2 FiO2 21.0 Potassium Carbon Dioxide Anion Gap BUN Creatinine Est GFR ( Amer) Est GFR (Non-Af Amer) Random Glucose Calcium Total Bilirubin AST ALT Alkaline Phosphatase Total Creatine Kinase CK-MB (Mass) Troponin I NT-Pro-B Natriuret Pep Total Protein Albumin Globulin Albumin/Globulin Ratio Venous Blood Potassium 3.5 L 01/23/19 20:40 WBC RBC Hgb Hct MCV MCH MCHC RDW Plt Count MPV Neut % (Auto) Lymph % (Auto) Burnett % (Auto) Eos % (Auto) Baso % (Auto) Neut # (Auto) Lymph # (Auto) Burnett # (Auto) Eos # (Auto) Baso # (Auto) PT INR APTT pO2 VBG pH VBG pCO2 VBG HCO3 VBG Total CO2 VBG O2 Sat (Calc) VBG Base Excess VBG Potassium Sodium 132 Chloride 96 L Glucose Lactate FiO2 Potassium 3.9 Carbon Dioxide 26 Anion Gap 14 BUN 14 Creatinine 1.5 Est GFR ( Amer) 58 Est GFR (Non-Af Amer) 48 Random Glucose 159 H D Calcium 11.5 H Total Bilirubin 0.6 AST 18 ALT 9 L D Alkaline Phosphatase 106 Total Creatine Kinase 59 CK-MB (Mass) 0.95 Troponin I < 0.0120 NT-Pro-B Natriuret Pep 1110 H Total Protein 7.2 Albumin 4.1 Globulin 3.1 Albumin/Globulin Ratio 1.3 Venous Blood Potassium Assessment & Plan - Assessment and Plan (Free Text) Plan: L Pleural Effusion Thoracentesis 04/2018, pleural fluid negative for malignant cells Pulmonology, Dr. Elise consulted Acetaminophen 650 Q6H PRN Tramadol 25mg Q6H PRN R kidney mass IR biopsy of R kidney mass 05/2018 Pathology 2018: Non viable tissue Follow up outpatient PPx protonix 20mg po daily Hold VTE for possible thoracentesis Discussed with Dr. Hola Capps PGY-1 <Chaitanya Simental P - Last Filed: 01/24/19 08:13> Results - Vital Signs Recent Vital Signs: Last Vital Signs Temp 97.6 F 01/24/19 07:00 Pulse 68 01/24/19 07:00 Resp 20 01/24/19 07:00 BP 136/76 01/24/19 07:00 Pulse Ox 98 01/24/19 07:00 - Labs Result Diagrams: 01/23/19 20:40 01/23/19 20:40 Labs: Laboratory Results - last 24 hr 01/23/19 01/23/19 01/23/19 20:35 20:40 20:40 WBC 7.2 RBC 4.89 Hgb 13.1 Hct 39.2 MCV 80.2 MCH 26.8 L MCHC 33.5 RDW 14.5 Plt Count 391 MPV 6.7 L Neut % (Auto) 69.1 Lymph % (Auto) 16.9 L Burnett % (Auto) 10.7 H Eos % (Auto) 2.5 Baso % (Auto) 0.8 Neut # (Auto) 5.0 Lymph # (Auto) 1.2 Burnett # (Auto) 0.8 Eos # (Auto) 0.2 Baso # (Auto) 0.1 PT 12.4 H INR 1.1 APTT 39 H pO2 50 VBG pH 7.46 H VBG pCO2 36 L VBG HCO3 26.2 VBG Total CO2 26.7 VBG O2 Sat (Calc) 91.4 H VBG Base Excess 2.0 VBG Potassium 3.5 L Sodium 132.0 Chloride 100.0 Glucose 150 H Lactate 1.2 FiO2 21.0 Potassium Carbon Dioxide Anion Gap BUN Creatinine Est GFR ( Amer) Est GFR (Non-Af Amer) Random Glucose Calcium Total Bilirubin AST ALT Alkaline Phosphatase Total Creatine Kinase CK-MB (Mass) Troponin I NT-Pro-B Natriuret Pep Total Protein Albumin Globulin Albumin/Globulin Ratio Venous Blood Potassium 3.5 L 01/23/19 20:40 WBC RBC Hgb Hct MCV MCH MCHC RDW Plt Count MPV Neut % (Auto) Lymph % (Auto) Burnett % (Auto) Eos % (Auto) Baso % (Auto) Neut # (Auto) Lymph # (Auto) Burnett # (Auto) Eos # (Auto) Baso # (Auto) PT INR APTT pO2 VBG pH VBG pCO2 VBG HCO3 VBG Total CO2 VBG O2 Sat (Calc) VBG Base Excess VBG Potassium Sodium 132 Chloride 96 L Glucose Lactate FiO2 Potassium 3.9 Carbon Dioxide 26 Anion Gap 14 BUN 14 Creatinine 1.5 Est GFR ( Amer) 58 Est GFR (Non-Af Amer) 48 Random Glucose 159 H D Calcium 11.5 H Total Bilirubin 0.6 AST 18 ALT 9 L D Alkaline Phosphatase 106 Total Creatine Kinase 59 CK-MB (Mass) 0.95 Troponin I < 0.0120 NT-Pro-B Natriuret Pep 1110 H Total Protein 7.2 Albumin 4.1 Globulin 3.1 Albumin/Globulin Ratio 1.3 Venous Blood Potassium Attending/Attestation - Attestation I have personally seen and examined this patient.: Yes I have fully participated in the care of the patient.: Yes I have reviewed all pertinent clinical information: Yes Notes (Text): 01/24/19 08:11 Symptomatic left pleural with pain, recurrent Right renal mass, biopsy last yr not conclusive Tobacco abuse, counselled. Plan CT chest/abd/pelvis with po and iv contrast, Pulmonary consult, Urology/IR consult depending on CT finding See orders for detail.
--- NOTE | 2019-01-24 07:45 | RAD ---
Date of service: 01/23/2019 HISTORY: SOB COMPARISON: Portable chest 06/01/2018. TECHNIQUE: 1 view obtained. FINDINGS: LUNGS: Chronic recurrent infiltrates identified at the mid to inferior left lung zone and appear mild. None are seen at the right. PLEURA: No pneumothorax bilaterally, or right pleural effusion. Mild left pleural effusion appears increased or recurrent. CARDIOVASCULAR: Calcific atherosclerotic changes are seen related to the thoracic aorta. Normal cardiac size. No pulmonary vascular congestion. OSSEOUS STRUCTURES: No significant abnormalities. VISUALIZED UPPER ABDOMEN: Normal. OTHER FINDINGS: None. IMPRESSION: Recurrent or persistent limited mid to inferior left-sided pulmonary infiltrate and mild left pleural effusion. Exam otherwise unremarkable.
[2019-01-24 08:12] LABS: INR 1.1; PROTHROMBIN TIME 12.2 SECONDS (9.7-12.2)
[2019-01-24 08:26] LABS: BASO # 0.1 K/uL (0.0-0.2); BASO % 1.1 % (0.0-2.0); EOS # 0.3 K/uL (0.0-0.7); EOS % 4.9 % (0.0-4.0); HEMOGLOBIN 13.3 g/dL (12.0-18.0); LYMPH # 1.5 K/uL (1.0-4.3); LYMPH % 25.7 % (20.0-40.0); MEAN CORPUSCULAR HEMOGLOBIN 26.6 pg (27.0-31.0); MEAN CORPUSCULAR HGB CONC 32.3 g/dL (33.0-37.0); MONO # 0.7 K/uL (0.0-0.8); MONO % 11.8 % (0.0-10.0); NEUT # 3.2 K/uL (1.8-7.0); NEUT % 56.5 % (50.0-75.0); RBC 4.98 Mil/uL (4.40-5.90); RED CELL DISTRIBUTION WIDTH 14.2 % (11.5-14.5); WHITE BLOOD COUNT 5.7 K/uL (4.8-10.8)
[2019-01-24 08:35] LABS: MEAN CELL VOLUME 82.5 fL (80.0-94.0)
[2019-01-24 08:40] LABS: ALB/GLOB RATIO 1.4 (1.0-2.1); ALBUMIN 4.3 g/dL (3.5-5.0); CALCIUM 11.4 mg/dl (8.6-10.4)
--- NOTE | 2019-01-24 09:19 | CP.PCM.PN ---
<Lamont Srinivasan - Last Filed: 01/24/19 13:37> Subjective - Date & Time of Evaluation Date of Evaluation: 01/24/19 Time of Evaluation: 09:19 - Subjective Subjective: PGY-1 Medicine Progress Note for Dr. Mcclain Patient seen and examined at bedside, in no acute distress. No overnight events reported. Continues to endorse mild L sided rib/flank pain. Denies any acute sob, cough, chest pain, palpitations, abdominal pain, n/v/d/c. Of note, patient had large R renal mass noted on CT from previous admission (05/2018), followed up with Dr. Hester for some time but stopped doing so about 6 months ago due to financial reasons and "feeling ok". Objective - Vital Signs/Intake and Output Vital Signs (last 24 hours): Temp Pulse Resp BP Pulse Ox 97.6 F 68 20 136/76 98 01/24/19 07:00 01/24/19 07:00 01/24/19 07:00 01/24/19 07:00 01/24/19 07:00 Intake and Output: 01/24/19 01/24/19 06:59 18:59 Intake Total 500 Output Total 1350 Balance -850 - Medications Medications: Current Medications Acetaminophen (Tylenol 325mg Tab) 650 mg PO Q6 PRN PRN Reason: Pain, moderate (4-7) Pantoprazole Sodium (Protonix Ec Tab) 20 mg PO DAILY RENITA Tramadol HCl (Ultram) 25 mg PO Q6H PRN PRN Reason: Pain, severe (8-10) - Labs Labs: 01/24/19 07:50 01/24/19 07:50 PT 12.2 SECONDS (9.7-12.2) 01/24/19 07:50 INR 1.1 01/24/19 07:50 APTT 39 SECONDS (21-34) H 01/24/19 07:50 - Constitutional Appears: Non-toxic, No Acute Distress - Head Exam Head Exam: ATRAUMATIC, NORMAL INSPECTION, NORMOCEPHALIC - Eye Exam Eye Exam: EOMI, Normal appearance, Scleral icterus Pupil Exam: NORMAL ACCOMODATION - ENT Exam ENT Exam: Mucous Membranes Moist, Normal Exam - Neck Exam Neck Exam: Full ROM, Normal Inspection. absent: Tenderness - Respiratory Exam Respiratory Exam: Decreased Breath Sounds, NORMAL BREATHING PATTERN. absent: Accessory Muscle Use, Rhonchi, Wheezes, Respiratory Distress, Stridor - Cardiovascular Exam Cardiovascular Exam: REGULAR RHYTHM, +S1, +S2 - GI/Abdominal Exam GI & Abdominal Exam: Soft, Normal Bowel Sounds, Organomegaly (Inferior tip of liver palpable further down in abdomen likely 2/2 large renal mass). absent: Distended, Firm, Guarding, Rigid, Rebound - Extremities Exam Extremities Exam: Full ROM, Normal Capillary Refill, Normal Inspection. absent: Calf Tenderness, Pedal Edema - Back Exam Back Exam: NORMAL INSPECTION, paraspinal tenderness - Neurological Exam Neurological Exam: Alert, Awake, CN II-XII Intact, Oriented x3 - Skin Skin Exam: Dry, Intact, Normal Color, Warm Assessment and Plan - Assessment and Plan (Free Text) Plan: Recurrent pleural effusion, left -pt is afebrile, no leukocytosis -CXR: mid-inferior L infiltrate and mild L pleural effusion -CT AP: sub cm L lower lobe pulmonary nodule with small L pleural effusion -f/u CT chest with PO and IV contrast -f/u Pulmonary recs (Dr. Elise) Renal mass, right -CT abdomen/pelvis (01/23/19): 10 x 9.5 cm R renal mass with 4 cm area of necrosis along posterior aspect. No hydronephrosis noted, no suspicious retroperitoneal lymphadenopathy noted. Renal mass contiguous with most inferior and posterior liver contour. No gross liver lesions noted. -IR biopsy of R renal mass (05/2018) inconclusive: nonviable tissue fragments obtained only -f/u Urology (Dr. Hester) recs PPx, Diet, Disposition -DVT ppx: held for possible thoracentesis -GI ppx: protonix 20 mg PO daily -Diet: HHD Case discussed with Dr. Johny Srinivasan DO, PGY-1 <Kwaku Mcclain - Last Filed: 01/30/19 21:46> Objective - Vital Signs/Intake and Output Vital Signs (last 24 hours): Temp Pulse Resp BP Pulse Ox 98.6 F 63 20 133/78 95 01/25/19 07:00 01/25/19 07:00 01/25/19 07:00 01/25/19 07:00 01/25/19 07:00 - Labs Labs: 01/25/19 08:07 01/25/19 08:07 PT 12.2 SECONDS (9.7-12.2) 01/24/19 07:50 INR 1.1 01/24/19 07:50 APTT 39 SECONDS (21-34) H 01/24/19 07:50 Attending/Attestation - Attestation I have personally seen and examined this patient.: Yes I have fully participated in the care of the patient.: Yes I have reviewed all pertinent clinical information, including history, physical exam and plan: Yes Notes (Text): 01/30/19 21:46 This is a late entry. Care of this patient was gone over with resident Dr. Srinivasan. Kwaku Mcclain D.O.
[2019-01-24] MEDS: Pantoprazole 20 mg EC Tab PO SCH (09:50)
[2019-01-24] MEDS ORDERED: Iodixanol 320 MG/ML 100 ML BOTTLE IV ONE (11:22)
[2019-01-24] MEDS ORDERED: Iohexol 240 (50 ml) PO ONE (11:30)
--- NOTE | 2019-01-24 16:00 | PCM.SURG1 ---
Surgeon's Initial Post Op Note - Surgeon's Notes Surgeon: Macario Avila MD Setter Induction Heating Equipment: NONE Type of Anesthesia: Local Pre-Operative Diagnosis: Renal mass, pleural masses Operative Findings: US showed heterogenous complex pleural mass left chest. Post-Operative Diagnosis: Renal mass, pleural masses Operation Performed: US guided core biopsy of left pleural mass. Specimen/Specimens Removed: 20-gauge core x 4 Estimated Blood Loss: EBL {In ML}: 2 Blood Products Given: N/A Drains Used: No Drains Post-Op Condition: Fair Date of Surgery/Procedure: 01/24/19 Time of Surgery/Procedure: 16:00
--- NOTE | 2019-01-24 16:06 | CT ---
Date of service: 01/24/2019 CT chest, abdomen, and pelvis with IV contrast Indication: left pleural effusion, right kid tumor Technique: Contiguous axial images of the chest, abdomen, and pelvis. Coronal and Sagittal reformats generated and reviewed. This CT exam was performed using 1 or more of the following dose reduction techniques: Automated exposure control, adjustment of the MAA and/or kV according to patient size, and/or use of iterative reconstruction technique. Contrast: 100 mL Visipaque 320 IV Radiation dose: Total exam DLP = 605.13 MGy-cm. Comparison: Chest x-ray performed 01/23/19, CT abdomen and pelvis without and with IV contrast performed 05/03/18 Findings: Visualized portions of the inferior thyroid gland appear unremarkable. The mediastinal and hilar vascular structures appear within normal limits. The heart appears within normal limits of size. Mediastinal lymph nodes measuring up to approximately 1.2 cm in short axis. Centrilobular emphysema. Bilateral pulmonary nodules involving all lobes consistent with metastatic pulmonary nodules. Pleural based heterogeneous partially necrotic left-sided mass measuring approximately 12.1 x 4.0 cm (series 3, image 71) along the lateral left mid to lower lung base. More anteriorly is an additional region of pleural based heterogeneous partially necrotic mass measuring approximately 6.6 x 2.1 cm (image 75). Anterior mediastinal necrotic masses measuring approximately 2.2 cm and 2.5 cm in short axis. No pneumothorax. 10.1 x 10.1 cm heterogeneous solid right renal mass consistent with malignant neoplasm which exerts mass effect on the collecting system. Collateral vasculature evident. The right adrenal gland is not identified. 1.5 cm enhancing focus in the region of the left adrenal gland. Bulbous appearance of the pancreatic tail re-identified. No evidence of dilated pancreatic duct. The liver, spleen, left kidney, and gallbladder appear unremarkable. The stomach is nondistended. The bowel loops appear within normal limits of caliber without evidence of intestinal obstruction. Moderate diffuse constipation. There is no definite free air. Atherosclerotic calcifications of the aorta. The prostate gland measures approximately 4.3 x 5.3 cm. Urinary bladder appears unremarkable. Pathologic osseous metastases/erosions involving the left 5th and 8th ribs. Impression: Innumerable pulmonary nodules throughout all lobes consistent with metastatic disease. Pleural based heterogeneous partially necrotic masses on the left. Associated osseous metastases/erosions involving the left 5th and 8th ribs. Necrotic anterior mediastinal masses. 10.1 x 10.1 cm heterogeneous solid right renal mass consistent with malignant neoplasm. 1.5 cm enhancing nodule in the region of the left adrenal gland presumably metastases. Pancreatic tail appears bulbous as on prior study. No evidence of dilated pancreatic duct. Enlarged prostate gland. Moderate constipation.
--- NOTE | 2019-01-24 16:50 | US ---
PROCEDURE: Date of procedure: 01/24/2019 Procedure: Ultrasound-guided lung mass biopsy Medications: 6 cc lidocaine 1% HISTORY: Right renal mass, left pleural mass. TECHNIQUE: Following informed consent and procedure time-out, the patient was placed prone on the added limited ultrasound of left chest showed heterogeneous complex left pleural mass extending into the chest wall. The patient's left back was prepped and draped in the usual sterile fashion. After the skin was anesthetized with lidocaine, a 20 gauge needle was advanced under direct ultrasound guidance into the mass. Upon confirmation of needle position, four 20 gauge core specimens were obtained and sent for routine histology. A dressing was applied. IMPRESSION: Ultrasound-guided core biopsy of left pleural mass.
[2019-01-24] MEDS: Tramadol 25 mg PO PRN (18:18)
--- NOTE | 2019-01-24 18:45 | CP.PCM.CON ---
History of Present Illness - History of Present Illness History of Present Illness: Reason for consultation: Chest pain and shortness of breath 59-year-old male with history of pleural effusion status post thoracentesis, right kidney mass status post biopsy with inconclusive pathology was seen in the office for shortness of breath and right posterior rib cage pain. Patient was advised to go to the emergency room for admission. CAT scan of the chest consistent with multiple nodules and left pleural mass with small effusion and large right renal mass. Patient underwent pleural biopsy by interventional radiologist. PMHx: enign R kidney mass and previous pleural effusion PSHx: R renal biopsy, thoracenesis 2018 Meds: none Allergies: NKDA FamHx: father- aneurysm SocHx: smoker- smokes 1ppd, denies alcohol and illicit drugs Pulm: Dr. Elise, Urology: Dr. Little Review of Systems - Review of Systems All systems: reviewed and no additional remarkable complaints except (Right rib cage pain) Past Patient History - Infectious Disease Hx of Infectious Diseases: None - Past Medical History & Family History Past Medical History?: Yes - Past Social History Smoking Status: Heavy Smoker > 10 Cigarettes Daily - CARDIAC Hx Hypertension: Yes - PULMONARY Hx Respiratory Disorders: Yes Other/Comment: HX:LEFT CHEST TUBE PLACED UNDER LOCAL ANESTHESIA(05/02/18)/REMOVED (05/04/18) - NEUROLOGICAL Hx Neurological Disorder: No - HEENT Hx HEENT Problems: No - RENAL Hx Chronic Kidney Disease: No - ENDOCRINE/METABOLIC Hx Endocrine Disorders: No - HEMATOLOGICAL/ONCOLOGICAL Hx Blood Disorders: Yes Hx Hepatitis A: Yes - INTEGUMENTARY Hx Dermatological Problems: No - MUSCULOSKELETAL/RHEUMATOLOGICAL Hx Musculoskeletal Disorders: No - GASTROINTESTINAL Hx Gastrointestinal Disorders: No - GENITOURINARY/GYNECOLOGICAL Hx Genitourinary Disorders: No - PSYCHIATRIC Hx Substance Use: No - SURGICAL HISTORY Hx Surgeries: Yes Other/Comment: CHEST TUBE PLACEMENT - ANESTHESIA Hx Anesthesia: No Meds Allergies/Adverse Reactions: Allergies Allergy/AdvReac Type Severity Reaction Status Date / Time No Known Allergies Allergy Verified 06/01/18 12:17 - Medications Medications: Current Medications Acetaminophen (Tylenol 325mg Tab) 650 mg PO Q6 PRN PRN Reason: Pain, moderate (4-7) Pantoprazole Sodium (Protonix Ec Tab) 20 mg PO DAILY RENITA Last Admin: 01/24/19 09:50 Dose: 20 mg Tramadol HCl (Ultram) 25 mg PO Q6H PRN PRN Reason: Pain, severe (8-10) Last Admin: 01/24/19 18:18 Dose: 25 mg Physical Exam - Head Exam Head Exam: ATRAUMATIC, NORMOCEPHALIC - ENT Exam ENT Exam: Mucous Membranes Moist - Neck Exam Neck exam: Positive for: Normal Inspection - Respiratory Exam Respiratory Exam: Decreased Breath Sounds - Cardiovascular Exam Cardiovascular Exam: REGULAR RHYTHM - GI/Abdominal Exam GI & Abdominal Exam: Normal Bowel Sounds - Extremities Exam Extremities exam: Positive for: normal inspection Results - Vital Signs Recent Vital Signs: Last Vital Signs Temp 97.6 F 01/24/19 07:00 Pulse 68 01/24/19 07:00 Resp 20 01/24/19 07:00 BP 136/76 01/24/19 07:00 Pulse Ox 98 01/24/19 12:00 - Labs Result Diagrams: 01/24/19 07:50 01/24/19 07:50 Labs: Laboratory Results - last 24 hr 01/23/19 01/23/19 01/23/19 20:35 20:40 20:40 WBC 7.2 RBC 4.89 Hgb 13.1 Hct 39.2 MCV 80.2 MCH 26.8 L MCHC 33.5 RDW 14.5 Plt Count 391 MPV 6.7 L Neut % (Auto) 69.1 Lymph % (Auto) 16.9 L [place] % (Auto) 10.7 H Eos % (Auto) 2.5 Baso % (Auto) 0.8 Neut # (Auto) 5.0 Lymph # (Auto) 1.2 [place] # (Auto) 0.8 Eos # (Auto) 0.2 Baso # (Auto) 0.1 PT 12.4 H INR 1.1 APTT 39 H pO2 50 VBG pH 7.46 H VBG pCO2 36 L VBG HCO3 26.2 VBG Total CO2 26.7 VBG O2 Sat (Calc) 91.4 H VBG Base Excess 2.0 VBG Potassium 3.5 L Sodium 132.0 Chloride 100.0 Glucose 150 H Lactate 1.2 FiO2 21.0 Potassium Carbon Dioxide Anion Gap BUN Creatinine Est GFR ( Amer) Est GFR (Non-Af Amer) Random Glucose Calcium Phosphorus Magnesium Total Bilirubin AST ALT Alkaline Phosphatase Total Creatine Kinase CK-MB (Mass) Troponin I NT-Pro-B Natriuret Pep Total Protein Albumin Globulin Albumin/Globulin Ratio Venous Blood Potassium 3.5 L 01/23/19 01/24/19 01/24/19 20:40 07:50 07:50 WBC 5.7 RBC 4.98 Hgb 13.3 Hct 41.0 MCV 82.5 D MCH 26.6 L MCHC 32.3 L RDW 14.2 Plt Count 421 H MPV 7.0 L Neut % (Auto) 56.5 Lymph % (Auto) 25.7 [place] % (Auto) 11.8 H Eos % (Auto) 4.9 H Baso % (Auto) 1.1 Neut # (Auto) 3.2 Lymph # (Auto) 1.5 [place] # (Auto) 0.7 Eos # (Auto) 0.3 Baso # (Auto) 0.1 PT 12.2 INR 1.1 APTT 39 H pO2 VBG pH VBG pCO2 VBG HCO3 VBG Total CO2 VBG O2 Sat (Calc) VBG Base Excess VBG Potassium Sodium 132 Chloride 96 L Glucose Lactate FiO2 Potassium 3.9 Carbon Dioxide 26 Anion Gap 14 BUN 14 Creatinine 1.5 Est GFR ( Amer) 58 Est GFR (Non-Af Amer) 48 Random Glucose 159 H D Calcium 11.5 H Phosphorus Magnesium Total Bilirubin 0.6 AST 18 ALT 9 L D Alkaline Phosphatase 106 Total Creatine Kinase 59 CK-MB (Mass) 0.95 Troponin I < 0.0120 NT-Pro-B Natriuret Pep 1110 H Total Protein 7.2 Albumin 4.1 Globulin 3.1 Albumin/Globulin Ratio 1.3 Venous Blood Potassium 01/24/19 07:50 WBC RBC Hgb Hct MCV MCH MCHC RDW Plt Count MPV Neut % (Auto) Lymph % (Auto) [place] % (Auto) Eos % (Auto) Baso % (Auto) Neut # (Auto) Lymph # (Auto) [place] # (Auto) Eos # (Auto) Baso # (Auto) PT INR APTT pO2 VBG pH VBG pCO2 VBG HCO3 VBG Total CO2 VBG O2 Sat (Calc) VBG Base Excess VBG Potassium Sodium 133 Chloride 97 L Glucose Lactate FiO2 Potassium 4.1 Carbon Dioxide 30 Anion Gap 10 BUN 16 Creatinine 1.7 H Est GFR ( Amer) 50 Est GFR (Non-Af Amer) 41 Random Glucose 98 D Calcium 11.4 H Phosphorus 3.6 Magnesium 2.6 H Total Bilirubin 0.9 AST 22 ALT 9 L Alkaline Phosphatase 98 Total Creatine Kinase CK-MB (Mass) Troponin I NT-Pro-B Natriuret Pep Total Protein 7.4 Albumin 4.3 Globulin 3.1 Albumin/Globulin Ratio 1.4 Venous Blood Potassium Assessment & Plan (1) Pleural effusion on left Assessment and Plan: Status post biopsy of pleural mass Analgesics Follow-up pathology report Status: Acute (2) Renal mass Status: Acute
--- NOTE | 2019-01-24 22:28 | CP.PCM.CON ---
History of Present Illness - History of Present Illness History of Present Illness: UROLOGY CONSULTATION Past Patient History - Infectious Disease Hx of Infectious Diseases: None - Past Medical History & Family History Past Medical History?: Yes - Past Social History Smoking Status: Heavy Smoker > 10 Cigarettes Daily - CARDIAC Hx Hypertension: Yes - PULMONARY Hx Respiratory Disorders: Yes Other/Comment: HX:LEFT CHEST TUBE PLACED UNDER LOCAL ANESTHESIA(05/02/18)/REMOV ED (05/04/18) - NEUROLOGICAL Hx Neurological Disorder: No - HEENT Hx HEENT Problems: No - RENAL Hx Chronic Kidney Disease: No - ENDOCRINE/METABOLIC Hx Endocrine Disorders: No - HEMATOLOGICAL/ONCOLOGICAL Hx Blood Disorders: Yes Hx Hepatitis A: Yes - INTEGUMENTARY Hx Dermatological Problems: No - MUSCULOSKELETAL/RHEUMATOLOGICAL Hx Musculoskeletal Disorders: No - GASTROINTESTINAL Hx Gastrointestinal Disorders: No - GENITOURINARY/GYNECOLOGICAL Hx Genitourinary Disorders: No - PSYCHIATRIC Hx Substance Use: No - SURGICAL HISTORY Hx Surgeries: Yes Other/Comment: CHEST TUBE PLACEMENT - ANESTHESIA Hx Anesthesia: No Meds Allergies/Adverse Reactions: Allergies Allergy/AdvReac Type Severity Reaction Status Date / Time No Known Allergies Allergy Verified 06/01/18 12:17 - Medications Medications: Current Medications Acetaminophen (Tylenol 325mg Tab) 650 mg PO Q6 PRN PRN Reason: Pain, moderate (4-7) Pantoprazole Sodium (Protonix Ec Tab) 20 mg PO DAILY RENITA Last Admin: 01/24/19 09:50 Dose: 20 mg Tramadol HCl (Ultram) 25 mg PO Q6H PRN PRN Reason: Pain, severe (8-10) Last Admin: 01/24/19 18:18 Dose: 25 mg Results - Vital Signs Recent Vital Signs: Last Vital Signs Temp 97.5 F L 01/24/19 15:15 Pulse 78 01/24/19 15:15 Resp 20 01/24/19 15:15 BP 130/76 01/24/19 15:15 Pulse Ox 96 01/24/19 15:15 - Labs Result Diagrams: 01/24/19 07:50 01/24/19 07:50 Labs: Laboratory Results - last 24 hr 01/24/19 01/24/19 01/24/19 07:50 07:50 07:50 WBC 5.7 RBC 4.98 Hgb 13.3 Hct 41.0 MCV 82.5 D MCH 26.6 L MCHC 32.3 L RDW 14.2 Plt Count 421 H MPV 7.0 L Neut % (Auto) 56.5 Lymph % (Auto) 25.7 [place] % (Auto) 11.8 H Eos % (Auto) 4.9 H Baso % (Auto) 1.1 Neut # (Auto) 3.2 Lymph # (Auto) 1.5 [place] # (Auto) 0.7 Eos # (Auto) 0.3 Baso # (Auto) 0.1 PT 12.2 INR 1.1 APTT 39 H Sodium 133 Potassium 4.1 Chloride 97 L Carbon Dioxide 30 Anion Gap 10 BUN 16 Creatinine 1.7 H Est GFR ( Amer) 50 Est GFR (Non-Af Amer) 41 Random Glucose 98 D Calcium 11.4 H Phosphorus 3.6 Magnesium 2.6 H Total Bilirubin 0.9 AST 22 ALT 9 L Alkaline Phosphatase 98 Total Protein 7.4 Albumin 4.3 Globulin 3.1 Albumin/Globulin Ratio 1.4 Assessment & Plan - Assessment and Plan (Free Text) Assessment: IMP: R renal tumor L pleural effusion L flank pain DISCUSSED W RESIDENT AND ATTENDING STAFF full note tbd YS - Date & Time Date: 01/24/19 Time: 12:10
[2019-01-25] MEDS: Tramadol 25 mg PO PRN ×2 (02:06→08:39)
--- NOTE | 2019-01-25 06:32 | CARD ---
APPROVED REPORT Date of service: 01/23/2019 EKG Measurement Heart [id number] <Conclusion> Normal sinus rhythm Abnormal QRS-T angle, consider primary T wave abnormality Abnormal ECG
--- NOTE | 2019-01-25 06:59 | CP.PCM.DIS ---
<CraigLamont - Last Filed: 01/25/19 10:34> Provider - Provider Date of Admission: 01/23/19 22:40 Attending physician: Chaitanya Simental MD Consults: 01/23/19 22:32 Physician Consult Stat Comment: LEFT SIDED EFFUSION Consulting Provider: Tj Elise Consulting Physician: Tj Elise Reason for Consult: PLUMONARY Additional Comments: SPOKEN WITH ALREADY 01/24/19 01:12 Pulmonology Consult Routine Comment: Consulting Provider: Tj Elise Consulting Physician: Tj Elise Reason for Consult: L Pleural effusion 01/24/19 10:12 Urology Consult Routine Comment: previously seen in the past Consulting Provider: Alecia Hester Consulting Physician: Alecia Hester Reason for Consult: large R renal mass, hematuria Time Spent in preparation of Discharge (in minutes): 40 Diagnosis - Discharge Diagnosis (1) Renal mass Status: Acute (2) Pleural mass Status: Acute Hospital Course - Lab Results Lab Results: Most Recent Lab Values WBC 5.7 K/uL (4.8-10.8) 01/24/19 07:50 RBC 4.98 Mil/uL (4.40-5.90) 01/24/19 07:50 Hgb 13.3 g/dL (12.0-18.0) 01/24/19 07:50 Hct 41.0 % (35.0-51.0) 01/24/19 07:50 MCV 82.5 fL (80.0-94.0) D 01/24/19 07:50 MCH 26.6 pg (27.0-31.0) L 01/24/19 07:50 MCHC 32.3 g/dL (33.0-37.0) L 01/24/19 07:50 RDW 14.2 % (11.5-14.5) 01/24/19 07:50 Plt Count 421 K/uL (130-400) H 01/24/19 07:50 MPV 7.0 fL (7.2-11.7) L 01/24/19 07:50 Neut % (Auto) 56.5 % (50.0-75.0) 01/24/19 07:50 Lymph % (Auto) 25.7 % (20.0-40.0) 01/24/19 07:50 [place] % (Auto) 11.8 % (0.0-10.0) H 01/24/19 07:50 Eos % (Auto) 4.9 % (0.0-4.0) H 01/24/19 07:50 Baso % (Auto) 1.1 % (0.0-2.0) 01/24/19 07:50 Neut # (Auto) 3.2 K/uL (1.8-7.0) 01/24/19 07:50 Lymph # (Auto) 1.5 K/uL (1.0-4.3) 01/24/19 07:50 [place] # (Auto) 0.7 K/uL (0.0-0.8) 01/24/19 07:50 Eos # (Auto) 0.3 K/uL (0.0-0.7) 01/24/19 07:50 Baso # (Auto) 0.1 K/uL (0.0-0.2) 01/24/19 07:50 PT 12.2 SECONDS (9.7-12.2) 01/24/19 07:50 INR 1.1 01/24/19 07:50 APTT 39 SECONDS (21-34) H 01/24/19 07:50 pO2 50 mm/Hg (30-55) 01/23/19 20:35 VBG pH 7.46 (7.32-7.43) H 01/23/19 20:35 VBG pCO2 36 mmHg (40-60) L 01/23/19 20:35 VBG HCO3 26.2 mmol/L 01/23/19 20:35 VBG Total CO2 26.7 mmol/L (22-28) 01/23/19 20:35 VBG O2 Sat (Calc) 91.4 % (40-65) H 01/23/19 20:35 VBG Base Excess 2.0 mmol/L (0.0-2.0) 01/23/19 20:35 VBG Potassium 3.5 mmol/L (3.6-5.2) L 01/23/19 20:35 Sodium 132.0 mmol/l (132-148) 01/23/19 20:35 Chloride 100.0 mmol/L (98-107) 01/23/19 20:35 Glucose 150 mg/dl (75-110) H 01/23/19 20:35 Lactate 1.2 mmol/L (0.7-2.1) 01/23/19 20:35 FiO2 21.0 % 01/23/19 20:35 Sodium 133 mmol/L (132-148) 01/24/19 07:50 Potassium 4.1 mmol/L (3.6-5.2) 01/24/19 07:50 Chloride 97 mmol/L (98-107) L 01/24/19 07:50 Carbon Dioxide 30 mmol/L (22-30) 01/24/19 07:50 Anion Gap 10 (10-20) 01/24/19 07:50 BUN 16 mg/dL (9-20) 01/24/19 07:50 Creatinine 1.7 mg/dL (0.8-1.5) H 01/24/19 07:50 Est GFR ( Amer) 50 01/24/19 07:50 Est GFR (Non-Af Amer) 41 01/24/19 07:50 Random Glucose 98 mg/dL (75-110) D 01/24/19 07:50 Calcium 11.4 mg/dl (8.6-10.4) H 01/24/19 07:50 Phosphorus 3.6 mg/dL (2.5-4.5) 01/24/19 07:50 Magnesium 2.6 mg/dL (1.6-2.3) H 01/24/19 07:50 Total Bilirubin 0.9 mg/dL (0.2-1.3) 01/24/19 07:50 AST 22 U/L (17-59) 01/24/19 07:50 ALT 9 U/L (21-72) L 01/24/19 07:50 Alkaline Phosphatase 98 U/L (38-126) 01/24/19 07:50 Total Creatine Kinase 59 U/L (55-170) 01/23/19 20:40 CK-MB (Mass) 0.95 ng/mL (0.0-3.38) 01/23/19 20:40 Troponin I < 0.0120 ng/mL (0.00-0.120) 01/23/19 20:40 NT-Pro-B Natriuret Pep 1110 pg/mL (0-900) H 01/23/19 20:40 Total Protein 7.4 g/dL (6.3-8.3) 01/24/19 07:50 Albumin 4.3 g/dL (3.5-5.0) 01/24/19 07:50 Globulin 3.1 gm/dL (2.2-3.9) 01/24/19 07:50 Albumin/Globulin Ratio 1.4 (1.0-2.1) 01/24/19 07:50 Venous Blood Potassium 3.5 mmol/L (3.6-5.2) L 01/23/19 20:35 - Hospital Course Hospital Course: HPI: Patient is a 59 year old male with past medical history of right kidney mass and previous pleural effusion presents to ED complaining of posterior left lower rib pain that began 3-4 weeks ago. Pain is 7/10, aching and feels like when he had the pleural effusion in 2018. Pain awakens patient from sleep. Patient also complans of shortness of breath on exertion. Symptoms worsen with walking. Treatment with aleve, advil and salonpas patches provided slight improvement. Patient endorses night sweats for the past week and 5 lb weight loss in the last month due to early satiety. Reports one episode of bloody urine 1.5 weeks ago which has resolve- states he has been meaning to see Dr. Little. Patient Denies fever, chills, chest pain, palpitations, cough, abdominal pain, hematochezia, nausea, vomiting, diarrhea, dysuria, urinary frequency. During the course of admission: CT abdomen/pelvis obtained in the ED demonstrated sub cm left lower lobe pulmonary nodule with small left pleural effusion; 10 x 9.5 cm right renal mass was also noted with 4 cm area of necrosis along posterior aspect. No hydronephrosis noted, no suspicious retroperitoneal lymphadenopathy noted. Renal mass contiguous with most inferior and posterior liver contour. No gross liver lesions noted. Subsequent CT of the chest/abdomen/pelvis obtained with PO and IV contrast obtained demonstrated innumerable pulmonary nodules throughout all lobes of the liver consistent with metastatic disease. A pleural based heterogenous partially necrotic mass can be seen on the left with associated osseous metastases/erosion involving the left 5th and 8th ribs. Necrotic anterior mediastinal masses also noted. 10.1 x 10.1 cm solid right renal mass consistent with malignant neoplasms noted, as well as a 1.5 cm left adrenal gland nodule, presumably metastasis. Urology (Dr. Leanna Hester), Pulmonology (Dr. Elise), and Interventional Radiology (Dr. Avila) were consulted and U/S-guided core biopsy of left pleural mass was obtained. Palliative Care was also consulted to discuss goals of care with patient and family at bedside. Patient is stable for discharge to home, as per Dr. Mcclain. He has been given a script for Percocet, to be taken as needed for pain management: Percocet 5/325 mg 1 tablet by mouth every 8 hours as needed for severe pain ONLY Please take with prune juice, as medication may cause constipation Dispense: # 15 Patient has 1 ppd history of cigarette smoking. Smoking cessation counseling was provided and script was given for Nicotine patches. Patient has been scheduled an appointment on Tuesday, 02/02 at 9AM in [facility] for follow-up of pathology report and to establish care with Hematology/Oncology. Address and phone number has been provided below: [place] [address] If symptoms worsen, please return to ED immediately. The following is a summary of hospital course. For full detail, please refer to EMR. - Date & Time of H&P Date of H&P: 01/25/19 Time of H&P: 10:25 Discharge Exam - Head Exam Head Exam: ATRAUMATIC, NORMAL INSPECTION, NORMOCEPHALIC - Eye Exam Eye Exam: EOMI, Normal appearance, Scleral icterus Pupil Exam: NORMAL ACCOMODATION - ENT Exam ENT Exam: Mucous Membranes Moist, Normal Exam - Neck Exam Neck exam: Full Rom, Normal Inspection - Respiratory Exam Respiratory Exam: Decreased Breath Sounds. absent: Accessory Muscle Use, Respiratory Distress - Cardiovascular Exam Cardiovascular Exam: REGULAR RHYTHM, +S1, +S2 - GI/Abdominal Exam GI & Abdominal Exam: Normal Bowel Sounds, Soft, Unremarkable Additional comments: Inferior tip of liver displaced downward likely 2/2 R renal mass - Extremities Exam Extremities exam: normal capillary refill, normal inspection, pedal pulses present - Back Exam Back exam: NORMAL INSPECTION, paraspinal tenderness - Neurological Exam Neurological exam: Alert, Oriented x3 - Skin Skin Exam: Dry, Intact, Normal Color, Warm Discharge Plan - Discharge Medications Prescriptions: Nicotine 21 mg/24 hr [Nicoderm Cq] 1 patch TD DAILY #30 patch - Follow Up Plan Condition: STABLE Disposition: HOME/ ROUTINE Instructions: Pleural Effusion (DC), Quitting Smoking, Pleural Biopsy, Nicotine, Oxycodone and Acetaminophen Additional Instructions: Patient is stable for discharge to home, as per Dr. Mcclain. He has been given a script for Percocet, to be taken as needed for pain management: Percocet 5/325 mg 1 tablet by mouth every 8 hours as needed for severe pain ONLY Please take with prune juice, as medication may cause constipation Dispense: # 15 Patient has 1 ppd history of cigarette smoking. Smoking cessation counseling was provided and script was given for Nicotine patches. Patient has been scheduled an appointment on Tuesday, 02/02 at 9AM in [facility], [facility] for follow-up of pathology report and to establish care with Hematology/Oncology. Address and phone number has been provided below: [facility] [place] [address] If symptoms worsen, please return to ED immediately. Referrals: [facility] [Outside] - 02/02/19 9:00 am <Kwaku Mcclain - Last Filed: 01/30/19 21:39> Provider - Provider Date of Admission: 01/23/19 22:40 Attending physician: Chaitanya Simental MD Consults: 01/23/19 22:32 Physician Consult Stat Comment: LEFT SIDED EFFUSION Consulting Provider: Tj Elise Consulting Physician: Tj Elise Reason for Consult: PLUMONARY Additional Comments: SPOKEN WITH ALREADY 01/24/19 01:12 Pulmonology Consult Routine Comment: Consulting Provider: Tj Elise Consulting Physician: Tj Elise Reason for Consult: L Pleural effusion 01/24/19 10:12 Urology Consult Routine Comment: previously seen in the past Consulting Provider: Alecia Hester Consulting Physician: Alecia Hester Reason for Consult: large R renal mass, hematuria 01/25/19 09:03 Palliative Care [Nursing Referral for Palliative Care] Routine Comment: Thank you Physician Instructions: Please dicuss with patient desired goals of care Reason For Exam: 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 01/25/19 09:14 Palliative Care Consult Routine Comment: Consulting Provider: Sherrie Lezama Physician Instructions: ROSAURA Mcclain MD Reason For Exam: Goals of care discussion, metastatic disease Hospital Course - Lab Results Lab Results: Most Recent Lab Values WBC 6.1 K/uL (4.8-10.8) 01/25/19 08:07 RBC 4.45 Mil/uL (4.40-5.90) 01/25/19 08:07 Hgb 12.5 g/dL (12.0-18.0) 01/25/19 08:07 Hct 36.7 % (35.0-51.0) 01/25/19 08:07 MCV 82.4 fL (80.0-94.0) 01/25/19 08:07 MCH 28.0 pg (27.0-31.0) 01/25/19 08:07 MCHC 34.0 g/dL (33.0-37.0) 01/25/19 08:07 RDW 13.9 % (11.5-14.5) 01/25/19 08:07 Plt Count 414 K/uL (130-400) H 01/25/19 08:07 MPV 6.9 fL (7.2-11.7) L 01/25/19 08:07 Neut % (Auto) 73.2 % (50.0-75.0) 01/25/19 08:07 Lymph % (Auto) 12.9 % (20.0-40.0) L 01/25/19 08:07 [place] % (Auto) 8.0 % (0.0-10.0) 01/25/19 08:07 Eos % (Auto) 4.7 % (0.0-4.0) H 01/25/19 08:07 Baso % (Auto) 1.2 % (0.0-2.0) 01/25/19 08:07 Neut # (Auto) 4.5 K/uL (1.8-7.0) 01/25/19 08:07 Lymph # (Auto) 0.8 K/uL (1.0-4.3) L 01/25/19 08:07 [place] # (Auto) 0.5 K/uL (0.0-0.8) 01/25/19 08:07 Eos # (Auto) 0.3 K/uL (0.0-0.7) 01/25/19 08:07 Baso # (Auto) 0.1 K/uL (0.0-0.2) 01/25/19 08:07 PT 12.2 SECONDS (9.7-12.2) 01/24/19 07:50 INR 1.1 01/24/19 07:50 APTT 39 SECONDS (21-34) H 01/24/19 07:50 pO2 50 mm/Hg (30-55) 01/23/19 20:35 VBG pH 7.46 (7.32-7.43) H 01/23/19 20:35 VBG pCO2 36 mmHg (40-60) L 01/23/19 20:35 VBG HCO3 26.2 mmol/L 01/23/19 20:35 VBG Total CO2 26.7 mmol/L (22-28) 01/23/19 20:35 VBG O2 Sat (Calc) 91.4 % (40-65) H 01/23/19 20:35 VBG Base Excess 2.0 mmol/L (0.0-2.0) 01/23/19 20:35 VBG Potassium 3.5 mmol/L (3.6-5.2) L 01/23/19 20:35 Sodium 132.0 mmol/l (132-148) 01/23/19 20:35 Chloride 100.0 mmol/L (98-107) 01/23/19 20:35 Glucose 150 mg/dl (75-110) H 01/23/19 20:35 Lactate 1.2 mmol/L (0.7-2.1) 01/23/19 20:35 FiO2 21.0 % 01/23/19 20:35 Sodium 131 mmol/L (132-148) L 01/25/19 08:07 Potassium 4.4 mmol/L (3.6-5.2) 01/25/19 08:07 Chloride 95 mmol/L (98-107) L 01/25/19 08:07 Carbon Dioxide 30 mmol/L (22-30) 01/25/19 08:07 Anion Gap 10 (10-20) 01/25/19 08:07 BUN 17 mg/dL (9-20) 01/25/19 08:07 Creatinine 1.6 mg/dL (0.8-1.5) H 01/25/19 08:07 Est GFR ( Amer) 53 01/25/19 08:07 Est GFR (Non-Af Amer) 44 01/25/19 08:07 Random Glucose 101 mg/dL (75-110) 01/25/19 08:07 Calcium 10.9 mg/dl (8.6-10.4) H 01/25/19 08:07 Phosphorus 3.6 mg/dL (2.5-4.5) 01/24/19 07:50 Magnesium 2.6 mg/dL (1.6-2.3) H 01/24/19 07:50 Total Bilirubin 0.8 mg/dL (0.2-1.3) 01/25/19 08:07 AST 17 U/L (17-59) D 01/25/19 08:07 ALT 7 U/L (21-72) L D 01/25/19 08:07 Alkaline Phosphatase 89 U/L (38-126) 01/25/19 08:07 Total Creatine Kinase 59 U/L (55-170) 01/23/19 20:40 CK-MB (Mass) 0.95 ng/mL (0.0-3.38) 01/23/19 20:40 Troponin I < 0.0120 ng/mL (0.00-0.120) 01/23/19 20:40 NT-Pro-B Natriuret Pep 1110 pg/mL (0-900) H 01/23/19 20:40 Total Protein 6.7 g/dL (6.3-8.3) 01/25/19 08:07 Albumin 3.9 g/dL (3.5-5.0) 01/25/19 08:07 Globulin 2.8 gm/dL (2.2-3.9) 01/25/19 08:07 Albumin/Globulin Ratio 1.4 (1.0-2.1) 01/25/19 08:07 Venous Blood Potassium 3.5 mmol/L (3.6-5.2) L 01/23/19 20:35 Attending/Attestation - Attestation I have personally seen and examined this patient.: Yes I have fully participated in the care of the patient.: Yes I have reviewed all pertinent clinical information, including history, physical exam and plan: Yes Notes (Text): 01/30/19 21:38 This is a late entry. Care of this patient and discharge instructions were thoroughly gone over with resident Dr. Srinivasan. Discharge instructions were thoroughly gone over with the patient and later with is (with patient's permission). Kwaku Mcclain D.O.
[2019-01-25 08:20] LABS: BASO # 0.1 K/uL (0.0-0.2); BASO % 1.2 % (0.0-2.0); EOS # 0.3 K/uL (0.0-0.7); EOS % 4.7 % (0.0-4.0); HEMOGLOBIN 12.5 g/dL (12.0-18.0); LYMPH # 0.8 K/uL (1.0-4.3); LYMPH % 12.9 % (20.0-40.0); MEAN CELL VOLUME 82.4 fL (80.0-94.0); MEAN PLATELET VOLUME 6.9 fL (7.2-11.7); MONO # 0.5 K/uL (0.0-0.8); NEUT # 4.5 K/uL (1.8-7.0); NEUT % 73.2 % (50.0-75.0); RBC 4.45 Mil/uL (4.40-5.90); RED CELL DISTRIBUTION WIDTH 13.9 % (11.5-14.5); WHITE BLOOD COUNT 6.1 K/uL (4.8-10.8)
[2019-01-25 08:38] VITALS: BP 133/78; TEMP 98.6; O2SAT 95
[2019-01-25 08:46] VITALS: PULSE 63
[2019-01-25 08:46] LABS: ALB/GLOB RATIO 1.4 (1.0-2.1); ALBUMIN 3.9 g/dL (3.5-5.0); CALCIUM 10.9 mg/dl (8.6-10.4)
[2019-01-25] MEDS: Pantoprazole 20 mg EC Tab PO SCH (09:46)
--- NOTE | 2019-01-25 14:18 | CP.PCM.CON ---
History of Present Illness - History of Present Illness History of Present Illness: Palliative care requested by Doctor Damien Mcclain for goals of care discussion re: cancer diagnosis Patient is a 59 yo male sent in from Doctor Arik's office with SOB which has worsened over last 4 week and sensation of chills. Patient denied fever. CT chest/abdomen and pelvis on this admission was significant for numerous pulmonary nodules, mets to ribs and large right kidney mass. Malignancy is suspected. Patient was diagnosed for renal mass last year by Doctor Mir. In May of last year patient had thoracentesis by Doctor Elise. Patient was advised to fallow up with Doctor Mir but he did not. Patient reports feeling better and did not see the urgency for fallow up. Another reason was lack of money and lack of health insurance. I met with patient and his today to discuss goals of care and offer support. PMH: HTN, thoracentesis May 2018, right kidney mass first diagnosed last year in May. 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 Hx: father from [place], no cancer in family Review of Systems - Constitutional Constitutional: absent: As Per HPI, Anorexia, Chills, Daytime Sleepiness, Excessive Sweating, Fatigue, Fever, Frequent Falls, Headache, Increased Appetite, Lethargy, Malaise, Night Sweats, Snoring, Sleep Apnea, Weight Gain, Weight Loss, Weakness, Other - EENT Eyes: absent: As Per HPI, Blind Spots, Blurred Vision, Change in Vision, Decreased Night Vision, Diplopia, Discharge, Dry Eye, Exophthalmos, Floaters, Irritation, Itchy Eyes, Loss of Peripheral Vision, Pain, Photophobia, Requires Corrective Lenses, Sees Flashes, Spots in Vision, Tunnel Vision, Other Visual Disturbances, Loss of Vision, Other Ears: absent: As Per HPI, Decreased Hearing, Ear Discharge, Ear Pain, Tinnitus, Abnormal Hearing, Disequilibrium, Dizziness, Other Nose/Mouth/Throat: absent: As Per HPI, Epistaxis, Nasal Congestion, Nasal Discharge, Nasal Obstruction, Nasal Trauma, Nose Pain, Post Nasal Drip, Sinus Pain, Sinus Pressure, Bleeding Gums, Change in Voice, Dental Pain, Dry Mouth, Dysphagia, Halitosis, Hoarsness, Lip Swelling, Mouth Lesions, Mouth Pain, Odynophagia, Sore Throat, Throat Swelling, Tongue Swelling, Facial Pain, Neck Pain, Neck Mass, Other - Cardiovascular Cardiovascular: absent: As Per HPI, Acrocyanosis, Chest Pain, Chest Pain at Rest, Chest Pain with Activity, Claudication, Diaphoresis, Dyspnea, Dyspnea on Exertion, Edema, Irregular Heart Rhythm, Pain Radiating to Arm/Neck/Jaw, Leg Edema, Leg Ulcers, Lightheadedness, Orthopnea, Palpitations, Paroxysmal Nocturnal Dyspnea, Pedal Edema, Radiating Pain, Rapid Heart Rate, Slow Heart Rate, Syncope, Other - Respiratory Respiratory: Dyspnea on Exertion - Gastrointestinal Gastrointestinal: Dyspepsia - Genitourinary Genitourinary: absent: As Per HPI, Change in Urinary Stream, Difficulty Urinating, Dysuria, Flank Pain, Hematuria, Pyuria, Nocturia, Urinary Incontinence, Urinary Frequency, Urinary Hesitance, Urinary Urgency, Voiding Freq/Small Amts, Freq UTI, Hx Renal/Bladder Calculi, Hx /Renal Surgery, Bladder Distension, Other - Musculoskeletal Musculoskeletal: absent: As Per HPI, Abnormal Gait, Arthralgias, Atrophy, Back Pain, Deformity, Joint Swelling, Limited Range of Motion, Loss of Height, Muscle Cramps, Muscle Weakness, Myalgias, Neck Pain, Numbness, Radiating Pain into Limb, Stiffness, Tingling, Other - Integumentary Integumentary: absent: As Per HPI, Acne, Alopecia, Bleeding Lesions, Change in Hair, Change in Nails, Change in Pigmentation, Changing Lesions, Dry Skin, Erythema, Furuncle, Hirsutism, Lesions, New Lesions, Non-Healing Lesions, Photosensitivity, Pruritus, Rash, Skin Pain, Skin Ulcer, Sores, Striae, Swelling, Unusual Bruising, Wounds, Jaundice, Other - Neurological Neurological: absent: As Per HPI, Abnormal Gait, Abnormal Hearing, Abnormal Movements, Abnormal Speech, Behavioral Changes, Burning Sensations, Confusion, Convulsions, Disequilibrium, Dizziness, Numbness, Focal Weakness, Frequent Falls, Headaches, Lack of Coordination, Loss of Vision, Memory Loss, Paresthesias, Radicular Pain, Restless Legs, Sensory Deficit, Syncope, Tingling, Tremor, Vertigo, Weakness, Other Visual Disturbances, Other - Psychiatric Psychiatric: Anxiety, Change in Appetite - Endocrine Endocrine: absent: As Per HPI, Change in Body Appearance, Change in Libido, Cold Intolorance, Deepening of Voice, Excessive Sweating, Fatigue, Flushing, Heat Intolorance, Increase in Ring/Shoe/Hat Size, Palpitations, Polydipsia, Israel yphagia, Polyuria, Other - Hematologic/Lymphatic Hematologic: absent: As Per HPI, Easy Bleeding, Easy Bruising, Lymphadenopathy, Other Past Patient History - Infectious Disease Hx of Infectious Diseases: None - Past Medical History & Family History Past Medical History?: Yes - Past Social History Smoking Status: Heavy Smoker > 10 Cigarettes Daily - CARDIAC Hx Hypertension: Yes - PULMONARY Hx Respiratory Disorders: Yes Other/Comment: HX:LEFT CHEST TUBE PLACED UNDER LOCAL ANESTHESIA(05/02/18)/REMOVED (05/04/18) - NEUROLOGICAL Hx Neurological Disorder: No - HEENT Hx HEENT Problems: No - RENAL Hx Chronic Kidney Disease: No - ENDOCRINE/METABOLIC Hx Endocrine Disorders: No - HEMATOLOGICAL/ONCOLOGICAL Hx Blood Disorders: Yes Hx Hepatitis A: Yes - INTEGUMENTARY Hx Dermatological Problems: No - MUSCULOSKELETAL/RHEUMATOLOGICAL Hx Musculoskeletal Disorders: No - GASTROINTESTINAL Hx Gastrointestinal Disorders: No - GENITOURINARY/GYNECOLOGICAL Hx Genitourinary Disorders: No - PSYCHIATRIC Hx Substance Use: No - SURGICAL HISTORY Hx Surgeries: Yes Other/Comment: CHEST TUBE PLACEMENT - ANESTHESIA Hx Anesthesia: No Meds Home Medications: Home Medication List Medication Instructions Recorded Confirmed Type Nicotine 21 mg/24 hr [Nicoderm Cq] 1 patch TD DAILY #30 patch 01/25/19 Rx Allergies/Adverse Reactions: Allergies Allergy/AdvReac Type Severity Reaction Status Date / Time No Known Allergies Allergy Verified 06/01/18 12:17 Physical Exam - Constitutional Appears: No Acute Distress - Head Exam Head Exam: ATRAUMATIC, NORMAL INSPECTION, NORMOCEPHALIC - Eye Exam Eye Exam: EOMI, Normal appearance, PERRL Pupil Exam: NORMAL ACCOMODATION, PERRL - ENT Exam ENT Exam: absent: Mucous Membranes Dry, Mucous Membranes Moist, Normal Exam, Normal External Ear Exam, Normal Oropharynx, TM's Normal Bilaterally - Neck Exam Neck exam: Negative for: Full Rom, Lymphadenopathy, Meningismus, Normal Inspection, Tenderness, Thyromegaly - Respiratory Exam Respiratory Exam: Decreased Breath Sounds, NORMAL BREATHING PATTERN - Cardiovascular Exam Cardiovascular Exam: Tachycardia, REGULAR RHYTHM - GI/Abdominal Exam GI & Abdominal Exam: Normal Bowel Sounds, Soft - Exam Exam: NORMAL INSPECTION - Extremities Exam Extremities exam: Positive for: normal inspection - Back Exam Back exam: NORMAL INSPECTION - Neurological Exam Neurological exam: Alert, Normal Gait, Oriented x3, Reflexes Normal - Psychiatric Exam Psychiatric exam: Normal Affect, Normal Mood - Skin Skin Exam: Dry, Intact, Normal Color, Warm Results - Vital Signs Recent Vital Signs: Last Vital Signs Temp 98.6 F 01/25/19 07:00 Pulse 63 01/25/19 07:00 Resp 20 01/25/19 07:00 BP 133/78 01/25/19 07:00 Pulse Ox 95 01/25/19 07:00 - Labs Result Diagrams: 01/25/19 08:07 01/25/19 08:07 Labs: Laboratory Results - last 24 hr 01/25/19 01/25/19 08:07 08:07 WBC 6.1 RBC 4.45 Hgb 12.5 Hct 36.7 MCV 82.4 MCH 28.0 MCHC 34.0 RDW 13.9 Plt Count 414 H MPV 6.9 L Neut % (Auto) 73.2 Lymph % (Auto) 12.9 L Island % (Auto) 8.0 Eos % (Auto) 4.7 H Baso % (Auto) 1.2 Neut # (Auto) 4.5 Lymph # (Auto) 0.8 L Island # (Auto) 0.5 Eos # (Auto) 0.3 Baso # (Auto) 0.1 Sodium 131 L Potassium 4.4 Chloride 95 L Carbon Dioxide 30 Anion Gap 10 BUN 17 Creatinine 1.6 H Est GFR ( Amer) 53 Est GFR (Non-Af Amer) 44 Random Glucose 101 Calcium 10.9 H Total Bilirubin 0.8 AST 17 D ALT 7 L D Alkaline Phosphatase 89 Total Protein 6.7 Albumin 3.9 Globulin 2.8 Albumin/Globulin Ratio 1.4 Assessment & Plan - Assessment and Plan (Free Text) Assessment: Palliative consult Full Code, there is no Advance directive on chart, PPS 90 % I reviewed all medical records, diagnostic studies, examined and interviewed patient in the bed Patient is alert, oriented X 3, with affect and speech that are normal in no acute distress. Skin dry, intact, warm to touch, no wounds. Breath sounds diminished mostly to left lung base, denies cough, admits to SOB on excertion. Reports discomfort to left chest relieved with Tramadol. Discomfort worsens with deep inhalation. Abdomen soft, active bowel sounds, reports feeling hungry but unable to tolerate food as he used to do. Denies constipation. Ambulatory, steady gait. Pain to Left chest described as discomfort rated 5/10 on pain scale. Pain re lieved by Tramadol 25 mg Po PRN. Pain is intermittent. BP 133/78, HR 79, O2Sat 95 % RA. Goals of care discussed with patient and his . Patient understands that he has "a tumor" and believes it was not cancer. With his permission I further elaborated on pulmonary nodules and ribs mets and offered my concerns that it could be malignancy since it was spread . Patient's cried.I offered support reassuring her that patient is taken care to the best of our ability and further outpatient appointments were made for his fallow up. She was concerned with lack of health insurance and financial difficulties. I directed her to [facility] for assistance with pain meds for the patient. I elicited patient's fears related to diagnosis. Patient demonstrated denial, assuming his condition is only temporally. In case he should receive Chemo Tx or radiation loss of hair and body image changes were his concerns. I offered more support and encouraged him to fallow up with Oncologist. We discussed changes needed regarding smoking cessation and healthy diet. Patient feels quitting smoking will be very difficult for him and he is not able to provide for Nicotine patches. I directed him to [facility] to get more information about programs on smoking cessation. Patient was to be discharged home this evening. I offered my contact info in case patient may have any questions once he gets home. Impression * Newly diagnosed metastatic disease * Stress related to diagnosis * Denial of current condition * Anticipatory anxiety * lack of health insurance * Financial difficulties * Difficult smoking cessation * Food intolerance Suggestion * Fallow up with Oncologist office * Reinforce healthy diet; small frequent meals * Refer to [facility] for Nicotine patches and pain meds supply * Reinforce smoking cessation * Discharge home Palliative care will sign off now. I shared my contact information with patient and his if they should need more help from me. Advance care planing 47 min.
[2019-01-26] MEDS ORDERED: Influenza Vaccine 60 mcg/0.5 mL SYR (4YR UP) IM ONE (14:00)
--- NOTE | 2019-01-28 20:19 | CON ---
DATE: 01/24/2019 UROLOGY CONSULTATION Urology consultation is requested by Dr. Simental. Urology consultation is filled by Dr. Alecia Hester. REASON FOR CONSULTATION: Right renal mass. HISTORY OF PRESENT ILLNESS: The patient is a 59-year-old male with right renal mass. The patient is in otherwise fairly health. The patient was admitted with left-sided chest pain. Chest pain is obviously in left lower lateral chest. The patient reports that the pain increases with activity and with respiration. There is no substernal chest pain. There is no anterior chest pain. The patient has a history of right renal mass. He reports the right renal mass was detected in 2018, more than six months ago. The patient had a previous biopsy of the right renal mass. The biopsy revealed necrotic tissue. There has been no hematuria. No nausea or vomiting. The patient has fair appetite. He is uncertain regarding weight loss. The patient voids with good urinary stream and good control. There is no history of urolithiasis. The patient is now admitted for evaluation regarding the renal mass and the chest pain. The patent was also noted to have left pleural effusion. The patient also has abdominal pain on the left side. There is no right-sided abdominal pain. PHYSICAL EXAMINATION: GENERAL: The patient is well developed, well nourished thin male, appearing stated age. The patient is awake and alert. ABDOMEN: Soft, nondistended, nontender. There is a large right upper quadrant mass of approximately 8 to 10 cm below the right costal margin. The mass has a smooth edge and moves with respiration. IMPRESSION: Right renal tumor. Left pleural effusion. I reviewed the x-rays including CT scan and chest x-ray. There is a large hetero-echogenic right renal mass consistent with renal cell carcinoma. There is left pleural effusion as well as left apical pleural base lung mass. The likely condition is metastatic renal cell carcinoma. RECOMMENDATIONS AND PLAN: Review old records. Possible biopsy of the lung/pleura on the left. Possible biopsy of the right renal tumor. Further therapy to follow according to the patient's clinical course. There may be a need for a nephrectomy. The role of nephrectomy in needs to be further evaluated in this case. Oncology consultation is recommended as well. I have discussed the findings with the resident staff as well as with the attending staff, as well as with the patient. Thank you for recommending the patient for urology consultation. Alecia MD Mir cc: Chaitanya Simental MD
== END 2019-01-25 13:54 | disposition home or self-care (01) ==
LOC: C.ER 19:40 → C.9E 22:40 → C.6T 23:36
PROVIDERS: ADMIT Internal Medicine; ATTEND Internal Medicine
DX: C78.02 Secondary malignant neoplasm of left lung (principal); J90 Pleural effusion, not elsewhere classified; I10 Essential (primary) hypertension; F41.9 Anxiety disorder, unspecified; F17.210 Nicotine dependence, cigarettes, uncomplicated; C64.1 Malignant neoplasm of right kidney, except renal pelvis
CPT/HCPCS: 32405; 36415; 71045; 71260; 74177; 80053; 82550; 82553; 82803; 83735; 83880; 84100; 84484; 85025; 85610; 85730; 88305; 93005; 96374; 96375; 97116; 97161; 99285; G0378; G8978; G8979; J1885; J1940; Q9966; Q9967